=== PATIENT | male | born 1955 | race Caucasian/White ===

== ENCOUNTER → 2017-09-18 | Outpatient (CLI) | payer MEDICARE, MEDICAID ==
[2017-09-18 09:30] LABS: ABSOLUTE BASOPHILS # (AUTO) 0.1 10^3/uL (0.0-0.2); ABSOLUTE EOSINOPHILS # (AUTO) 0.2 10^3/uL (0.0-0.6); ABSOLUTE LYMPHOCYTES (AUTO) 1.1 10^3/uL (0.5-4.7); ABSOLUTE MONOCYTES (AUTO) 0.4 10^3/uL (0.1-1.4); ABSOLUTE NEUT (AUTO) 3.2 10^3/uL (1.7-8.2); BASOPHILS % (AUTO) 2.3 % (0-2); EOSINOPHILS % (AUTO) 3.7 % (0-6); HEMATOCRIT 42.8 % (37.9-51.0); HEMOGLOBIN 14.4 g/dL (13.5-17.0); HGB HCT DIFFERENCE 0.4; LYMPHOCYTES % (AUTO) 21.8 % (13-45); MEAN CORPUSCULAR HEMOGLOBIN 34.4 pg (27.0-33.4); MEAN CORPUSCULAR HGB CONC 33.7 g/dL (32.0-36.0); MEAN CORPUSCULAR VOLUME 102 fl (80-97); MONOCYTES % (AUTO) 7.5 % (3-13); RED BLOOD COUNT 4.19 10^6/uL (4.35-5.55); RED CELL DISTRIBUTION WIDTH 13.9 % (11.5-14.0); SEGMENTED NEUTROPHILS % (AUTO) 64.7 % (42-78); WHITE BLOOD COUNT 4.9 10^3/uL (4.0-10.5)
[2017-09-18 09:52] LABS: ALANINE AMINOTRANSFERASE 117 U/L (21-72); ALBUMIN 4.5 g/dL (3.5-5.0); ALKALINE PHOSPHATASE 52 U/L (38-126); ANION GAP 12 (5-19); ASPARTATE AMINO TRANSFERASE 59 U/L (17-59); BILIRUBIN,DIRECT 0.4 mg/dL (0.0-0.4); BILIRUBIN,TOTAL 0.6 mg/dL (0.2-1.3); BLOOD UREA NITROGEN 13 mg/dL (7-20); CALCIUM 9.7 mg/dL (8.4-10.2); CARBON DIOXIDE 30 mmol/L (22-30); CHLORIDE 101 mmol/L (98-107); CHOLESTEROL 239.94 mg/dL (0-200); CREATININE RESULT 1.15 mg/dL (0.52-1.25); Direct HDL 44 mg/dL (>40); GLUCOSE 96 mg/dL (75-110); SODIUM 143.4 mmol/L (137-145); TRIGLYCERIDES 256 mg/dL (<150)
[2017-09-18 10:03] LABS: DIRECT LDL 128 mg/dL (<100)
[2017-09-18 10:06] LABS: VLDL CHOLESTEROL 51.2 mg/dL (10-31)
== END ==
LOC: OD 08:33
PROVIDERS: ATTEND Family Medicine Geriatric Medicine
DX: D47.3 Essential (hemorrhagic) thrombocythemia (principal); E66.9 Obesity, unspecified; M79.9 Soft tissue disorder, unspecified; Z79.899 Other long term (current) drug therapy
CPT/HCPCS: 36415; 80053; 80061; 84443; 85025

== ENCOUNTER → 2017-12-19 | Outpatient (CLI) | payer MEDICARE, MEDICAID ==
[2017-12-19 08:50] LABS: ALANINE AMINOTRANSFERASE 108 U/L (21-72); ASPARTATE AMINO TRANSFERASE 55 U/L (17-59)
== END ==
LOC: OD 07:26
PROVIDERS: ATTEND Family Medicine Geriatric Medicine
DX: R94.8 Abnormal results of function studies of other organs and systems (principal)
CPT/HCPCS: 36415; 84450; 84460

== ENCOUNTER → 2018-01-01 | Outpatient (CLI) | payer MEDICARE, MEDICAID ==
--- NOTE | 2018-01-01 08:16 | RADIOLOGY REPORT (SQ) ---
EXAM DESCRIPTION: U/S ABDOMEN LIMITED W/O DOP COMPLETED DATE/TIME: 01/01/2018 7:28 am REASON FOR STUDY: OTHER SPECIFIED ABN FINDINGS OF BLOOD CHEM (R79.89), OBESITY (E66.9) R79.89 OTHER SPECIFIED ABNORMAL FINDINGS OF BLOOD CHEMISTRY COMPARISON: None. TECHNIQUE: Dynamic and static grayscale images acquired of the abdomen and recorded on PACS. Additio nal selected color Doppler and spectral images recorded. LIMITATIONS: Midline bowel gas FINDINGS: PANCREAS: Not visualized LIVER: Echogenic liver, difficult to penetrate with the ultrasound energy from fatty infiltration. N o gross masses. LIVER VASCULATURE: Normal directional flow of the main portal vein and hepatic veins. GALLBLADDER: No stones. Normal wall thickness. No pericholecystic fluid. ULTRASOUND-DETECTED IRBY'S SIGN: Negative. INTRAHEPATIC DUCTS AND COMMON DUCT: No gross intrahepatic biliary ductal dilatation. Common duct at the al hepatis difficult to visualize INFERIOR VENA CAVA: Not well seen AORTA: No aneurysm. RIGHT KIDNEY: Normal size. Normal echogenicity. No solid or suspicious masses. No hydronephrosis. No calcifications. PERITONEAL AND RIGHT PLEURAL SPACE: No ascites or effusions. OTHER: No other significant findings. IMPRESSION: Fatty liver No gallstones TECHNICAL DOCUMENTATION: JOB ID: [id number] [employer]- All Rights Reserved Reading location - IP/workstation name: [email or web address]
== END ==
LOC: RAD 06:25
PROVIDERS: ATTEND Family Medicine Geriatric Medicine
DX: R79.89 Other specified abnormal findings of blood chemistry (principal); E66.9 Obesity, unspecified; K76.0 Fatty (change of) liver, not elsewhere classified
CPT/HCPCS: 76705

== ENCOUNTER → 2018-03-20 | Outpatient (CLI) | payer MEDICARE, MEDICAID ==
[2018-03-20 08:41] LABS: LIPASE 106.9 U/L (23-300)
[2018-03-23 15:37] LABS: HEPATITIS B CORE AB IGM Negative (Negative); HEPATITIS B CORE AB TOT Negative (Negative); HEPATITIS BE AB Negative (Negative); HEPATITIS BE ANTIGEN Negative (Negative); HEPATITIS C VIRUS AB <0.1 s/co ratio (0.0-0.9); HEPATITS B SURFACE ANTIGEN Negative (Negative)
[2018-03-24 07:14] LABS: HEPATITIS B SURFACE AB QUAL Non Reactive (.)
== END ==
LOC: OD 07:06
PROVIDERS: ATTEND Family Medicine Geriatric Medicine
DX: D47.3 Essential (hemorrhagic) thrombocythemia (principal); R79.89 Other specified abnormal findings of blood chemistry; E78.5 Hyperlipidemia, unspecified; E66.9 Obesity, unspecified; Z79.899 Other long term (current) drug therapy
CPT/HCPCS: 36415; 82150; 82977; 83690; 84450; 84460; 86704; 86705; 86706; 86707; 86803; 87340; 87350

== ENCOUNTER → 2018-06-04 | Outpatient (CLI) | payer MEDICARE, MEDICAID ==
[2018-06-04 08:31] LABS: ABSOLUTE LYMPHOCYTES (AUTO) 0.9 10^3/uL (0.5-4.7); ABSOLUTE MONOCYTES (AUTO) 0.3 10^3/uL (0.1-1.4); ABSOLUTE NEUT (AUTO) 1.1 10^3/uL (1.7-8.2); BASOPHILS % (AUTO) 0.8 % (0-2); EOSINOPHILS % (AUTO) 0.8 % (0-6); HEMOGLOBIN 14.1 g/dL (13.5-17.0); LYMPHOCYTES % (AUTO) 38.9 % (13-45); MEAN CORPUSCULAR HEMOGLOBIN 42.6 pg (27.0-33.4); MEAN CORPUSCULAR VOLUME 118 fl (80-97); PLATELET COUNT 630 10^3/uL (150-450); RED CELL DISTRIBUTION WIDTH 17.9 % (11.5-14.0); SEGMENTED NEUTROPHILS % (AUTO) 47.5 % (42-78); TOTAL CELLS COUNTED % (AUTO) 100 %; WHITE BLOOD COUNT 2.4 10^3/uL (4.0-10.5)
[2018-06-04 08:56] LABS: TEAR DROP CELLS SLIGHT
[2018-06-04 08:57] LABS: OVALOCYTES 1+; PLATELET COMMENT INCREASED; POIKILOCYTOSIS 1+; STOMATOCYTES 1+
[2018-06-04 09:12] LABS: ALANINE AMINOTRANSFERASE 50 U/L (21-72); ALBUMIN 4.3 g/dL (3.5-5.0); ALKALINE PHOSPHATASE 47 U/L (38-126); ANION GAP 12 (5-19); ASPARTATE AMINO TRANSFERASE 39 U/L (17-59); BILIRUBIN,DIRECT 0.3 mg/dL (0.0-0.4); BILIRUBIN,TOTAL 0.8 mg/dL (0.2-1.3); BLOOD UREA NITROGEN 18 mg/dL (7-20); CALCIUM 9.1 mg/dL (8.4-10.2); CARBON DIOXIDE 28 mmol/L (22-30); CHLORIDE 103 mmol/L (98-107); GLUCOSE 90 mg/dL (75-110); IRON(TIBC) 157.2 ug/dL (49-181); POTASSIUM 4.7 mmol/L (3.6-5.0); SODIUM 143.3 mmol/L (137-145); TOTAL PROTEIN 7.3 g/dL (6.3-8.2)
[2018-06-07 11:27] LABS: MITOCHONDRIAL (M2) ANTIBODY 4.5 Units (0.0-20.0)
== END ==
LOC: OD 07:07
PROVIDERS: ATTEND Physician Assistant Surgical
DX: R94.5 Abnormal results of liver function studies (principal); K73.9 Chronic hepatitis, unspecified; K76.0 Fatty (change of) liver, not elsewhere classified; R93.2 Abnormal findings on diagnostic imaging of liver and biliary tract
CPT/HCPCS: 36415; 80053; 82728; 83540; 83550; 85025; 86038; 86235; 86256

== ENCOUNTER 2018-06-07 21:04 | Emergency (ER) | payer MEDICARE, MEDICAID ==
--- NOTE | 2018-06-07 22:30 | ER Document Report ---
ED General - General Chief Complaint: Psych Problem Stated Complaint: SUICIDAL IDEATION Time Seen by Provider: 06/07/18 22:19 Notes: Patient is a 62-year-old male with a past medical history of depression, anxiety , former alcohol and drug abuse although has been sober for the past 2 years who presents with passive suicidal ideation. The patient states that he began taking fluoxetine and Latuda approximately 2 months ago. States he had been doing very well for approximately 3 weeks but notes that within the past several weeks he has begun to again feel more depressed and for the past several days has had passive suicidal ideation. He denies any specific plans, means or intention by which he could harm himself. He does not have access to firearm. He states that he has had depression for over the past 25 years that has been treated with medication. He states he has never tried to harm himself in the past but has had intermittent passive suicidal ideation throughout his life. He denies psychiatric hospitalizations in the past. He denies any acute medical concerns. He has not discussed with his psychiatrist regarding today's concerns, states that he is frustrated that his psychiatry team is often on a computer as opposed to in person. TRAVEL OUTSIDE OF THE [place] IN LAST 30 DAYS: No - Related Data Allergies/Adverse Reactions: No Known Allergies Allergy (Verified 02/15/13 12:49) Past Medical History - General Information source: Patient - Social History Smoking Status: Former Smoker Frequency of alcohol use: None Drug Abuse: None Lives with: Alone Family History: Other - alzheimers Patient has suicidal ideation: Yes Patient has homicidal ideation: No - Past Medical History Cardiac Medical History: Denies: Hx Heart Attack, Hx Hypertension Pulmonary Medical History: Denies: Hx Asthma Neurological Medical History: Denies: Hx Cerebrovascular Accident, Hx Seizures Renal/ Medical History: Denies: Hx Peritoneal Dialysis GI Medical History: Denies: Hx Hepatitis, Hx Hiatal Hernia, Hx Ulcer Psychiatric Medical History: Reports: Hx Bipolar Disorder, Hx Depression Infectious Medical History: Denies: Hx Hepatitis Past Surgical History: Reports: Hx Orthopedic Surgery - left knee. Denies: Hx Open Heart Surgery, Hx Pacemaker - Immunizations Hx Diphtheria, Pertussis, Tetanus Vaccination: - unknown Review of Systems - Review of Systems Notes: Constitutional: Negative for fever. HENT: Negative for sore throat. Eyes: Negative for visual changes. Cardiovascular: Negative for chest pain. Respiratory: Negative for shortness of breath. Gastrointestinal: Negative for abdominal pain, vomiting or diarrhea. Genitourinary: Negative for dysuria. Musculoskeletal: Negative for back pain. Skin: Negative for rash. Neurological: Negative for headaches, weakness or numbness. 10 point ROS negative except as marked above and in HPI. Physical Exam - Vital signs Vitals: Temp Pulse Resp BP Pulse Ox 98.0 F 91 18 122/78 97 06/07/18 21:11 06/07/18 21:11 06/07/18 21:11 06/07/18 21:11 06/07/18 21:11 Interpretation: Normal Notes: PHYSICAL EXAMINATION: GENERAL: Well-appearing, well-nourished and in no acute distress. HEAD: Atraumatic, normocephalic. EYES: Pupils equal round and reactive to light, extraocular movements intact, sclera anicteric, conjunctiva are normal. ENT: nares patent, oropharynx clear without exudates. Moist mucous membranes. NECK: Normal range of motion, supple without lymphadenopathy LUNGS: Breath sounds clear to auscultation bilaterally and equal. No wheezes rales or rhonchi. HEART: Regular rate and rhythm without murmurs ABDOMEN: Soft, nontender, normoactive bowel sounds. No guarding, no rebound. No masses appreciated. EXTREMITIES: Normal range of motion, no pitting or edema. No cyanosis. NEUROLOGICAL: No focal neurological deficits. Moves all extremities spontaneously and on command. PSYCH: Normal mood, normal affect. SKIN: Warm, Dry, normal turgor, no rashes or lesions noted. Course - Re-evaluation Re-evalutation: 06/07/18 22:29 Patient presents with passive suicidal ideation without any specific plans, means or intention to harm himself. He states clearly that he could not actually hurt himself. He does have report that his passive suicidal ideation has been pervasive and persistent for at least the past 3 days when he had been doing well for the past 3 weeks on Latuda and fluoxetine. He does not meet involuntary commitment criteria but has elected to remain in the emergency department to speak psychology in the morning. Standard psychiatric screening labs will be sent. Screening exam unremarkable. He is cleared for evaluation and disposition per psychology. - Vital Signs Vital signs: Temp Pulse Resp BP Pulse Ox 98.0 F 91 18 122/78 97 06/07/18 21:11 06/07/18 21:11 06/07/18 21:11 06/07/18 21:11 06/07/18 21:11 - Laboratory Result Diagrams: 06/07/18 22:35 06/07/18 22:35 Laboratory results interpreted by me: 06/07/18 06/07/18 06/07/18 22:35 22:35 22:37 WBC 3.7 L RBC 3.36 L MCV 120 H MCH 42.8 H RDW 18.2 H Plt Count 708 H Urine Urobilinogen 2.0 H Urine Ascorbic Acid 40 H Salicylates < 1.0 L Acetaminophen < 10 L - EKG Interpretation by Me Additional EKG results interpreted by me: 06/08/18 03:13 Sinus rhythm. Rate 74. No ST elevations or depressions. QTC is 418. Discharge - Discharge Clinical Impression: Suicidal ideation Depression Qualifiers: Depression Type: unspecified Qualified Code(s): F32.9 - Major depressive disorder, single episode, unspecified Condition: Fair Referrals: DEIDRA OCONNOR PA-C [COMMUNITY BASED STAFF] - Follow up as needed
[2018-06-07 22:57] LABS: ABSOLUTE LYMPHOCYTES (AUTO) 1.3 10^3/uL (0.5-4.7); ABSOLUTE MONOCYTES (AUTO) 0.3 10^3/uL (0.1-1.4); ABSOLUTE NEUT (AUTO) 2.1 10^3/uL (1.7-8.2); BASOPHILS % (AUTO) 0.5 % (0-2); EOSINOPHILS % (AUTO) 0.9 % (0-6); HEMATOCRIT 40.2 % (37.9-51.0); HEMOGLOBIN 14.4 g/dL (13.5-17.0); LYMPHOCYTES % (AUTO) 35.2 % (13-45); MEAN CORPUSCULAR HEMOGLOBIN 42.8 pg (27.0-33.4); MEAN CORPUSCULAR HGB CONC 35.8 g/dL (32.0-36.0); MEAN CORPUSCULAR VOLUME 120 fl (80-97); PLATELET COUNT 708 10^3/uL (150-450); RED BLOOD COUNT 3.36 10^6/uL (4.35-5.55); RED CELL DISTRIBUTION WIDTH 18.2 % (11.5-14.0); SEGMENTED NEUTROPHILS % (AUTO) 55.4 % (42-78); TOTAL CELLS COUNTED % (AUTO) 100 %; WHITE BLOOD COUNT 3.7 10^3/uL (4.0-10.5)
[2018-06-07 23:12] LABS: ALANINE AMINOTRANSFERASE 61 U/L (21-72); ALBUMIN 4.6 g/dL (3.5-5.0); ALKALINE PHOSPHATASE 58 U/L (38-126); ANION GAP 12 (5-19); ASPARTATE AMINO TRANSFERASE 47 U/L (17-59); BILIRUBIN,DIRECT 0.3 mg/dL (0.0-0.4); BILIRUBIN,TOTAL 0.7 mg/dL (0.2-1.3); BLOOD UREA NITROGEN 16 mg/dL (7-20); CALCIUM 9.6 mg/dL (8.4-10.2); CARBON DIOXIDE 30 mmol/L (22-30); CHLORIDE 102 mmol/L (98-107); GLUCOSE 95 mg/dL (75-110); POTASSIUM 4.7 mmol/L (3.6-5.0); SODIUM 144.2 mmol/L (137-145); TOTAL PROTEIN 7.7 g/dL (6.3-8.2)
[2018-06-07 23:15] LABS: ACETAMINOPHEN < 10 ug/mL (10-30); ALCOHOL < 10 mg/dL (NONE DETECTED); SALICYLATE < 1.0 mg/dL (2.0-20.0)
[2018-06-07 23:27] LABS: ANISOCYTOSIS 1+; OVALOCYTES SLIGHT; POIKILOCYTOSIS SLIGHT; TEAR DROP CELLS SLIGHT
[2018-06-07 23:28] LABS: PLATELET COMMENT INCREASED
[2018-06-07 23:50] LABS: APPEARANCE,URINE TURBID; BILIRUBIN,URINE NEGATIVE (NEGATIVE); COLOR,URINE YELLOW; GLUCOSE, URINE NEGATIVE (NEGATIVE); KETONES,URINE NEGATIVE (NEGATIVE); LEUKOCYTE ESTERASE,URINE NEGATIVE (NEGATIVE); NITRITE,URINE NEGATIVE (NEGATIVE); PROTEIN,URINE NEGATIVE (NEGATIVE); URINE SPECIFIC GRAVITY 1.029
[2018-06-08 00:01] LABS: URINE AMPHETAMINES SCREEN NEGATIVE; URINE BARBITURATES SCREEN NEGATIVE; URINE BENZODIAZEPINES SCREEN NEGATIVE; URINE COCAINE SCREEN NEGATIVE; URINE MARIJUANA (THC) SCREEN NEGATIVE; URINE METHADONE SCREEN NEGATIVE; URINE PHENCYCLIDINE SCREEN NEGATIVE
--- NOTE | 2018-06-08 08:04 | EKG REPORT ---
SEVERITY:- BORDERLINE ECG - SINUS RHYTHM PROBABLE LEFT ATRIAL ABNORMALITY : Confirmed by: Vahid Arango MD 08-Jun-2018 08:03:20
--- NOTE | 2018-06-08 09:17 | ER Document Report ---
Doctor's Note Notes: 06/08/18 09:17 62-year-old male who presents with passive suicidal ideations without obvious plan. No firearms at home. History of depression and anxiety. Started on fluoxetine and Latuda 2 months ago. Has had this passive suicidal ideation with some mild depression over the past 3 weeks. Vital signs are stable. Labs as recorded. Awaiting psychiatric evaluation. 06/08/18 10:10 The psychology team is seen and evaluated the patient. They have contacted the patient's friend who is a social media community manager Mr. Reddy. He is able to help the patient with follow-up. Patient already sees [facility] with a recent medication change around 2 months ago as detailed above. The psychology team here would like to discontinue the fluoxetine and Latuda and start the patient on Effexor and BuSpar with a 5 day course until follow-up with his psychologist. Patient denies any suicidal ideations at this time. He is very comfortable with this plan.
--- NOTE | 2018-06-08 09:58 | PSYCHOLOGICAL NOTE ---
Psych Note - Psych Note Psych Note: Reason for consult: Suicidal ideation Consent permissions: Field Reddy [phone] Patient is a 62-year-old male with a past medical history of depression, anxiety , former alcohol and drug abuse although has been sober for the past 2 years who presents with passive suicidal ideation. Patient reports that he came to [facility] because he is been having suicidal thoughts for the last couple days. He reports that he does not have a plan and confirms that these thoughts have been going on and off for a while. He discloses that he has had depression since he was 19 years old however it was until he was 27 where he started on medications and going to AA meetings. Patient reports that he used to be a [facility] patient where he received an Invega; however, change providers in April to [facility] where he recieved medication changes to Latuda and Prozac. He reports an increase in depression and thoughts of SI since that change of medications. Patient reports that he has been clean and sober for 11 months and denies any difficulties or increased cravings recently. Clinician attempted phone call to patient's friend, Field Reddy: left message Field Reddy returned phone call he reports patient has been coming to meetings regularly and has been doing well. He confirms to be part of patient' s discharge plan i.e. ensures patient does not have access to medications weapons and follows through with mental health recommendations. He reports that he will assist the patient in finding a therapist locally so he can have one-on-one therapeutic services. Patient is alert and orientated to person, place, time and circumstance. Mood is euthymic with congruent affect. Patient endorses passive suicidal ideation i.e. no plans means or intent. Patient denies homicidal ideation. Delusions are absent behaviors congruent with an intact reality based presentation i.e. organized and linear thought process. Eye contact was well-maintained. Conversational speech was within normal rate, tone and prosody. Intellectual abilities appear to be within the average range. Attention and concentration were good. Insight, judgment, impulse control are good as evidenced by immediately reaching out and asking for assistance when feeling increased depression and passive suicidal ideation. Medication recommendations per [facility]'s contracted psychiatrist Dr. Thong MD are as follows: please stop home meds of latuda and prozac please start effexor 37.5mg daily please start buspar 5mg twice daily Diagnosis 296.30 (F33.9) major depressive disorder, recurrent, unspecified per history provided by patient Patient discloses a history of substance abuse; clean and sober for last 11 months Impression/plan:Patient is cleared from acute psychiatric services. Patient does not meet IVC criteria per [place] GS 122C. Patient discloses passive suicidal ideation; ie no plan, means or intent.Patient reports medication changes 2 months ago with an increase in depression with passive suicidal ideation starting several days previous. Medication recommendations have been provided. Patient has a medication appointment tomorrow with a therapeutic appointment on the sixth with [facility]. Patient does disclose concern for receiving services via telehealth stating he does not like talking to someone on a computer. Patient was provided resource list of local providers. Patient's support Mr. Reddy confirms he he will be part of patient's discharge plan to include assisting the patient in finding a provider that can provide in person therapeutic services. Dr. Garcia was consulted and the care and management of this patient; attending physician is in agreement with recommendations and disposition.
[2018-06-08] MEDS ORDERED: VENLAFAXINE HCL 37.5 MG CAP.SR.24H PO ONE (10:13)
[2018-06-08] MEDS ORDERED: BUSPIRONE HCL 10 MG TABLET PO ONE (10:13)
[2018-06-08 12:20] VITALS: BP 111/80
== END 2018-06-08 12:20 | disposition home or self-care (01) ==
LOC: ER 21:04
DX: F31.9 Bipolar disorder, unspecified (principal); Z79.899 Other long term (current) drug therapy; R45.851 Suicidal ideations; F41.9 Anxiety disorder, unspecified; Z87.891 Personal history of nicotine dependence
CPT/HCPCS: 93005; 99285; 36415; 80307 ×4; 85025; 80053; 81001; 93010; A9270 ×2; J3490

== ENCOUNTER → 2018-06-18 | Outpatient (CLI) | payer MEDICARE, MEDICAID | LOC: OD 09:40 | PROVIDERS: ATTEND Family Medicine Geriatric Medicine | DX: R79.89 Other specified abnormal findings of blood chemistry (principal); R94.5 Abnormal results of liver function studies | CPT/HCPCS: 36415; 84460 ==

== ENCOUNTER 2018-07-16 01:07 | Emergency (ER) | payer OTHER, MEDICARE, MEDICAID ==
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
[2018-07-16] MEDS ORDERED: LIDOCAINE 5% (700 MG) TRANSDERMAL ADH..PATCH TP ONE (01:48)
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
--- NOTE | 2018-07-16 02:24 | RADIOLOGY REPORT (SQ) ---
CLINICAL DATA: Left lateral rib pain. TECHNICAL DATA: Three x-ray views of the left ribs were performed. FINDINGS: There appear to be old healing fractures of the left 9th, 10th and 11th ribs and possibly the left 12th rib. No definite acute rib fracture is identified. Bone mineralization is normal. There are no lytic or sclerotic bone lesions the visualized portions of the left hemithorax are unremarkable. There are degenerative changes of the left shoulder.. IMPRESSION: There appear to be old healing fractures of the left 9th,10th and 11th ribs and possibly the left 12th rib. No definite acute fractures are identified.
[2018-07-16 03:05] VITALS: BP 135/92
--- NOTE | 2018-07-16 08:58 | EKG REPORT ---
SEVERITY:- OTHERWISE NORMAL ECG - SINUS TACHYCARDIA : Confirmed by: Vania Mueller 16-Jul-2018 08:58:17
== END 2018-07-16 03:03 | disposition home or self-care (01) ==
LOC: ER 01:07
DX: S22.32XA Fracture of one rib, left side, initial encounter for closed fracture (principal); L03.116 Cellulitis of left lower limb; R07.9 Chest pain, unspecified; R07.81 Pleurodynia; V29.9XXA Motorcycle rider (driver) (passenger) injured in unspecified traffic accident, initial encounter
CPT/HCPCS: 71046; 93005; 93010; 99285

== ENCOUNTER 2018-07-18 15:10 | Emergency (ER) | payer OTHER, MEDICARE, MEDICAID ==
[2018-07-18 15:16] VITALS: BP 132/79
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
[2018-07-18 17:19] LABS: ABSOLUTE MONOCYTES (AUTO) 0.4 10^3/uL (0.1-1.4); ABSOLUTE NEUT (AUTO) 3.1 10^3/uL (1.7-8.2); BASOPHILS % (AUTO) 0.6 % (0-2); HEMOGLOBIN 10.8 g/dL (13.5-17.0); LYMPHOCYTES % (AUTO) 22.2 % (13-45); MEAN CORPUSCULAR HEMOGLOBIN 46.1 pg (27.0-33.4); MEAN CORPUSCULAR VOLUME 128 fl (80-97); MONOCYTES % (AUTO) 8.9 % (3-13); PLATELET COUNT 667 10^3/uL (150-450); RED BLOOD COUNT 2.34 10^6/uL (4.35-5.55); RED CELL DISTRIBUTION WIDTH 18.1 % (11.5-14.0); SEGMENTED NEUTROPHILS % (AUTO) 67.3 % (42-78); TOTAL CELLS COUNTED % (AUTO) 100 %; WHITE BLOOD COUNT 4.6 10^3/uL (4.0-10.5)
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
[2018-07-18 17:29] LABS: ALANINE AMINOTRANSFERASE 48 U/L (21-72); ALBUMIN 4.2 g/dL (3.5-5.0); ALKALINE PHOSPHATASE 61 U/L (38-126); ANION GAP 8 (5-19); ASPARTATE AMINO TRANSFERASE 49 U/L (17-59); BILIRUBIN,DIRECT 0.4 mg/dL (0.0-0.4); BLOOD UREA NITROGEN 12 mg/dL (7-20); CALCIUM 8.9 mg/dL (8.4-10.2); CARBON DIOXIDE 29 mmol/L (22-30); CHLORIDE 101 mmol/L (98-107); GLUCOSE 102 mg/dL (75-110); POTASSIUM 4.6 mmol/L (3.6-5.0); SODIUM 138.1 mmol/L (137-145)
[2018-07-18 17:33] LABS: ANISOCYTOSIS 2+; OVALOCYTES SLIGHT; POLYCHROMASIA SLIGHT
[2018-07-18 17:34] LABS: PLATELET COMMENT INCREASED; POIKILOCYTOSIS 1+; TEAR DROP CELLS SLIGHT
== END 2018-07-18 18:24 | disposition home or self-care (01) ==
LOC: ER 15:10
DX: L03.116 Cellulitis of left lower limb (principal); R60.0 Localized edema; M25.562 Pain in left knee; R07.81 Pleurodynia; M79.605 Pain in left leg; M79.89 Other specified soft tissue disorders; F17.200 Nicotine dependence, unspecified, uncomplicated; V23.4XXD Motorcycle driver injured in collision with car, pick-up truck or van in traffic accident, subsequent encounter
CPT/HCPCS: 36415; 80053; 83605; 85025; 99284

== ENCOUNTER 2018-07-21 09:52 | Emergency (ER) | payer OTHER, MEDICARE, MEDICAID ==
[2018-07-21 10:01] VITALS: BP 130/77
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
== END 2018-07-21 13:51 | disposition left against medical advice (07) ==
LOC: ER 09:52
DX: S27.321A Contusion of lung, unilateral, initial encounter (principal); S71.111A Laceration without foreign body, right thigh, initial encounter; S81.812A Laceration without foreign body, left lower leg, initial encounter; S20.02XA Contusion of left breast, initial encounter; S60.512A Abrasion of left hand, initial encounter; S60.511A Abrasion of right hand, initial encounter; S90.812A Abrasion, left foot, initial encounter; S90.811A Abrasion, right foot, initial encounter; R07.81 Pleurodynia; V29.40XA Motorcycle driver injured in collision with unspecified motor vehicles in traffic accident, initial encounter; R19.7 Diarrhea, unspecified; Z53.20 Procedure and treatment not carried out because of patient's decision for unspecified reasons
CPT/HCPCS: 71046; 99281

== ENCOUNTER → 2018-08-24 | Outpatient (CLI) | payer OTHER, MEDICARE, MEDICAID ==
--- NOTE | 2018-08-25 09:52 | RADIOLOGY REPORT (SQ) ---
EXAM DESCRIPTION: CHEST PA/LATERAL COMPLETED DATE/TIME: 08/25/2018 9:14 am REASON FOR STUDY: J18.9 PNEUMONIA, UNSPECIFIED ORGANISM COMPARISON: Two-view chest 07/21/2018 EXAM PARAMETERS: NUMBER OF VIEWS: two views TECHNIQUE: Digital Frontal and Lateral radiographic views of the chest acquired. RADIATION DOSE: NA LIMITATIONS: none FINDINGS: LUNGS AND PLEURA: No opacities, masses or pneumothorax. No pleural effusion. MEDIASTINUM AND HILAR STRUCTURES: No masses or contour abnormalities. HEART AND VASCULAR STRUCTURES: Heart normal size. No evidence for failure. BONES: No acute findings. HARDWARE: None in the chest. OTHER: No other significant finding. IMPRESSION: NO SIGNIFICANT RADIOGRAPHIC FINDING IN THE CHEST. TECHNICAL DOCUMENTATION: JOB ID: [id number] [employer]- All Rights Reserved Reading location - IP/workstation name: [email or web address]
== END ==
LOC: OD 11:52
PROVIDERS: ATTEND Family Medicine Geriatric Medicine
DX: J18.9 Pneumonia, unspecified organism (principal)
CPT/HCPCS: 71046

== ENCOUNTER 2018-09-09 16:57 | Emergency (ER) | payer MEDICARE, MEDICAID ==
--- NOTE | 2018-09-09 17:22 | ER Document Report ---
ED Medical Screen (RME) - General Chief Complaint: Suicidal Ideation Stated Complaint: PSYCH PROBLEM Time Seen by Provider: 09/09/18 17:20 Notes: 62 years old male with a history of depression presents today with suicidal ideation, no plan. TRAVEL OUTSIDE OF THE [place] IN LAST 30 DAYS: No - Related Data Allergies/Adverse Reactions: No Known Allergies Allergy (Verified 09/09/18 16:59) Past Medical History - Social History Chew tobacco use (# tins/day): No Frequency of alcohol use: None Drug Abuse: None - Past Medical History Cardiac Medical History: Denies: Hx Heart Attack, Hx Hypertension Pulmonary Medical History: Denies: Hx Asthma Neurological Medical History: Denies: Hx Cerebrovascular Accident, Hx Seizures Renal/ Medical History: Denies: Hx Peritoneal Dialysis GI Medical History: Denies: Hx Hepatitis, Hx Hiatal Hernia, Hx Ulcer Psychiatric Medical History: Reports: Hx Bipolar Disorder, Hx Depression Infectious Medical History: Denies: Hx Hepatitis Past Surgical History: Reports: Hx Orthopedic Surgery - left knee. Denies: Hx Open Heart Surgery, Hx Pacemaker - Immunizations Hx Diphtheria, Pertussis, Tetanus Vaccination: - unknown Physical Exam - Vital signs Vitals: Temp Pulse Resp BP Pulse Ox 97.5 F 86 14 135/82 H 95 09/09/18 17:08 09/09/18 17:08 09/09/18 17:08 09/09/18 17:08 09/09/18 17:08 Course - Vital Signs Vital signs: Temp Pulse Resp BP Pulse Ox 97.5 F 86 14 135/82 H 95 09/09/18 17:08 09/09/18 17:08 09/09/18 17:08 09/09/18 17:08 09/09/18 17:08 Doctor's Discharge - Discharge Referrals: ALVIN ARMAS MD [Primary Care Provider] - Follow up as needed
[2018-09-09 18:18] LABS: ABSOLUTE EOSINOPHILS # (AUTO) 0.1 10^3/uL (0.0-0.6); ABSOLUTE MONOCYTES (AUTO) 0.2 10^3/uL (0.1-1.4); ABSOLUTE NEUT (AUTO) 1.7 10^3/uL (1.7-8.2); BASOPHILS % (AUTO) 0.5 % (0-2); EOSINOPHILS % (AUTO) 2.4 % (0-6); HEMATOCRIT 38.5 % (37.9-51.0); HEMOGLOBIN 13.6 g/dL (13.5-17.0); LYMPHOCYTES % (AUTO) 32.3 % (13-45); MEAN CORPUSCULAR HEMOGLOBIN 45.6 pg (27.0-33.4); MEAN CORPUSCULAR HGB CONC 35.4 g/dL (32.0-36.0); MEAN CORPUSCULAR VOLUME 129 fl (80-97); MONOCYTES % (AUTO) 7.3 % (3-13); PLATELET COUNT 339 10^3/uL (150-450); RED BLOOD COUNT 2.98 10^6/uL (4.35-5.55); RED CELL DISTRIBUTION WIDTH 13.5 % (11.5-14.0); SEGMENTED NEUTROPHILS % (AUTO) 57.5 % (42-78); TOTAL CELLS COUNTED % (AUTO) 100 %
[2018-09-09 18:29] LABS: ALANINE AMINOTRANSFERASE 49 U/L (21-72); ALBUMIN 4.5 g/dL (3.5-5.0); ALKALINE PHOSPHATASE 63 U/L (38-126); ANION GAP 10 (5-19); ASPARTATE AMINO TRANSFERASE 40 U/L (17-59); BILIRUBIN,DIRECT 0.2 mg/dL (0.0-0.4); BILIRUBIN,TOTAL 0.6 mg/dL (0.2-1.3); BLOOD UREA NITROGEN 15 mg/dL (7-20); CALCIUM 9.1 mg/dL (8.4-10.2); CARBON DIOXIDE 29 mmol/L (22-30); CHLORIDE 104 mmol/L (98-107); GLUCOSE 99 mg/dL (75-110); POTASSIUM 4.4 mmol/L (3.6-5.0); SODIUM 142.6 mmol/L (137-145); TOTAL PROTEIN 7.2 g/dL (6.3-8.2)
[2018-09-09 18:30] LABS: ACETAMINOPHEN < 10 ug/mL (10-30); ALCOHOL < 10 mg/dL (NONE DETECTED); SALICYLATE < 1.0 mg/dL (2.0-20.0)
[2018-09-09 18:33] LABS: PLATELET COMMENT ADEQUATE; POIKILOCYTOSIS SLIGHT; TEAR DROP CELLS SLIGHT; TOXIC GRANULATION SLIGHT
[2018-09-09 18:40] LABS: APPEARANCE,URINE CLEAR; BILIRUBIN,URINE NEGATIVE (NEGATIVE); COLOR,URINE YELLOW; GLUCOSE, URINE NEGATIVE (NEGATIVE); KETONES,URINE NEGATIVE (NEGATIVE); LEUKOCYTE ESTERASE,URINE NEGATIVE (NEGATIVE); NITRITE,URINE NEGATIVE (NEGATIVE); PROTEIN,URINE NEGATIVE (NEGATIVE); URINE SPECIFIC GRAVITY 1.025; UROBILINOGEN,URINE NEGATIVE mg/dL (<2.0)
[2018-09-09 18:47] LABS: URINE AMPHETAMINES SCREEN NEGATIVE; URINE BARBITURATES SCREEN NEGATIVE; URINE BENZODIAZEPINES SCREEN NEGATIVE; URINE COCAINE SCREEN NEGATIVE; URINE MARIJUANA (THC) SCREEN NEGATIVE; URINE METHADONE SCREEN NEGATIVE; URINE PHENCYCLIDINE SCREEN NEGATIVE
--- NOTE | 2018-09-09 19:02 | EKG REPORT ---
SEVERITY:- NORMAL ECG - SINUS RHYTHM : Confirmed by: Vahid Arango MD 09-Sep-2018 19:01:25
--- NOTE | 2018-09-09 22:48 | ER Document Report ---
ED General - General Chief Complaint: Suicidal Ideation Stated Complaint: PSYCH PROBLEM Time Seen by Provider: 09/09/18 17:20 Mode of Arrival: Ambulatory Information source: Patient TRAVEL OUTSIDE OF THE [place] IN LAST 30 DAYS: No - HPI Patient complains to provider of: depression Onset: Other - This is a 62-year-old man that presents for evaluation of depression. He has been intermittently treated for depression in the past and is currently on Zyprexa to help with his depression which is only helped slightly. He has been seen by his counselor multiple times for an attempted medication adjustment without any improvement so he contacted 1 of the local mental health facilities who suggested he undergo a medical clearance that they would be willing to take him as he presented voluntarily to be admitted as an inpatient at an outside facility for medication adjustments. He denies at this time any suicidality he denies any homicidality. He denies any hallucinations or desire to harm anyone else. - Related Data Allergies/Adverse Reactions: No Known Allergies Allergy (Verified 09/09/18 16:59) Past Medical History - General Information source: Patient - Social History Smoking Status: Never Smoker Chew tobacco use (# tins/day): No Frequency of alcohol use: None Drug Abuse: None Family History: Reviewed & Not Pertinent, Other - alzheimers Patient has suicidal ideation: Yes Patient has homicidal ideation: No - Past Medical History Cardiac Medical History: Denies: Hx Heart Attack, Hx Hypertension Pulmonary Medical History: Denies: Hx Asthma Neurological Medical History: Denies: Hx Cerebrovascular Accident, Hx Seizures Renal/ Medical History: Denies: Hx Peritoneal Dialysis GI Medical History: Denies: Hx Hepatitis, Hx Hiatal Hernia, Hx Ulcer Psychiatric Medical History: Reports: Hx Bipolar Disorder, Hx Depression Infectious Medical History: Denies: Hx Hepatitis Past Surgical History: Reports: Hx Orthopedic Surgery - left knee. Denies: Hx Open Heart Surgery, Hx Pacemaker - Immunizations Hx Diphtheria, Pertussis, Tetanus Vaccination: - unknown Review of Systems - Review of Systems -: Yes All other systems reviewed and negative Physical Exam - Vital signs Vitals: Temp Pulse Resp BP Pulse Ox 97.5 F 86 14 135/82 H 95 09/09/18 17:08 09/09/18 17:08 09/09/18 17:08 09/09/18 17:08 09/09/18 17:08 - General General appearance: Appears well, Alert - HEENT Head: Normocephalic, Atraumatic Eyes: Normal Pupils: PERRL - Respiratory Respiratory status: No respiratory distress Chest status: Nontender Breath sounds: Normal Chest palpation: Normal - Cardiovascular Rhythm: Regular Heart sounds: Normal auscultation Murmur: No - Abdominal Inspection: Normal Distension: No distension Bowel sounds: Normal Tenderness: Nontender Organomegaly: No organomegaly - Back Back: Normal, Nontender - Extremities General upper extremity: Normal inspection, Nontender, Normal color, Normal ROM , Normal temperature General lower extremity: Normal inspection, Nontender, Normal color, Normal ROM , Normal temperature, Normal weight bearing. No: Margarita's sign - Neurological Neuro grossly intact: Yes Cognition: Normal Orientation: AAOx4 [place] Coma Scale Eye Opening: Spontaneous [place] Coma Scale Verbal: Oriented Amy Coma Scale Motor: Obeys Commands [place] Coma Scale Total: 15 Speech: Normal Motor strength normal: LUE, RUE, LLE, RLE Sensory: Normal - Psychological Associated symptoms: Normal affect, Normal mood Course - Re-evaluation Re-evalutation: 09/10/18 00:09 This is a gentleman is 62 presents for voluntary evaluation of depression. Had contacted an outside facility was seeking a medical clearance to undergo inpatient treatment and adjustment of his medications. Following his medical clearance we did discuss his potential waiting until morning to be seen by mental health team and will be transitioned to inpatient care however he decided that he did not want to wait any longer and he will pursue outpatient treatment for his ongoing depression. I did discuss with him my concerns related specifically to his mental health he again reiterated that he is not at this time suicidal or homicidal he has no plan to harm himself or anyone else. He notes that he is going to pursue outpatient management will continue to take his medications as previously. Because of his well appearance is appropriate insight and no obvious underlying cause for his depression it is immediately treatable in the emergency department I believe it is appropriate for him to pursue outpatient management as he had in the past. He has demonstrated appropriate follow-up previously. He will be discharged with return precautions and encouraged follow-up in his psychologist office tomorrow. - Vital Signs Vital signs: Temp Pulse Resp BP Pulse Ox 97.5 F 86 14 135/82 H 95 09/09/18 17:08 09/09/18 17:08 09/09/18 17:08 09/09/18 17:08 09/09/18 17:08 - Laboratory Result Diagrams: 09/09/18 17:50 09/09/18 17:50 Laboratory results interpreted by me: 09/09/18 09/09/18 17:50 17:50 WBC 3.0 L RBC 2.98 L MCV 129 H MCH 45.6 H Salicylates < 1.0 L Acetaminophen < 10 L Discharge - Discharge Clinical Impression: Depression Qualifiers: Depression Type: unspecified Qualified Code(s): F32.9 - Major depressive disorder, single episode, unspecified Condition: Good Disposition: HOME, SELF-CARE Instructions: Depression ([facility]) Additional Instructions: Your seen today in the emergency department for your depression. You had an evaluation including labs drawn. You presented voluntarily, he states specifically that you have no desire to harm anyone including herself at this time. You should call your physician tomorrow for an appointment. Return immediately for any worsening suicidal thoughts or depression. Referrals: ALVIN ARMAS MD [Primary Care Provider] - Follow up as needed
[2018-09-09 23:02] VITALS: BP 129/78
== END 2018-09-09 22:50 | disposition home or self-care (01) ==
LOC: ER 16:57
DX: F31.9 Bipolar disorder, unspecified (principal); Z79.899 Other long term (current) drug therapy; R45.851 Suicidal ideations; Z87.891 Personal history of nicotine dependence; F10.21 Alcohol dependence, in remission
CPT/HCPCS: 36415; 80053; 80307; 81001; 85025; 93005; 93010; 99285

== ENCOUNTER 2018-09-14 14:55 | Emergency (ER) | payer MEDICARE, MEDICAID ==
--- NOTE | 2018-09-14 15:41 | ER Document Report ---
ED Medical Screen (RME) - General Chief Complaint: Depression Stated Complaint: PSYCH PROBLEMS Time Seen by Provider: 09/14/18 15:35 Notes: 62-year-old male with chief complaint of feeling depressed and having suicidal thoughts. Will not elaborate for me, will not tell me if he has had a plan, denies attempting suicide in the past. Past medical history of schizoaffective disorder, depression, denies hallucinations, denies any sick symptoms. States he was placed on Zyprexa 1 month ago, helped initially, feels it is not helping now. TRAVEL OUTSIDE OF THE [place] IN LAST 30 DAYS: No - Related Data Allergies/Adverse Reactions: No Known Allergies Allergy (Verified 09/14/18 14:56) Past Medical History - Social History Chew tobacco use (# tins/day): No Frequency of alcohol use: None Drug Abuse: None - Past Medical History Cardiac Medical History: Denies: Hx Heart Attack, Hx Hypertension Pulmonary Medical History: Denies: Hx Asthma Neurological Medical History: Denies: Hx Cerebrovascular Accident, Hx Seizures Renal/ Medical History: Denies: Hx Peritoneal Dialysis GI Medical History: Denies: Hx Hepatitis, Hx Hiatal Hernia, Hx Ulcer Psychiatric Medical History: Reports: Hx Bipolar Disorder, Hx Depression Infectious Medical History: Denies: Hx Hepatitis Past Surgical History: Reports: Hx Orthopedic Surgery - left knee. Denies: Hx Open Heart Surgery, Hx Pacemaker - Immunizations Hx Diphtheria, Pertussis, Tetanus Vaccination: - unknown Physical Exam - Vital signs Vitals: Temp Pulse Resp BP Pulse Ox 98.0 F 89 12 125/76 94 09/14/18 15:22 09/14/18 15:22 09/14/18 15:22 09/14/18 15:22 09/14/18 15:22 - General General appearance: Appears well In distress: None - Psychological Associated symptoms: No: Normal affect - Flat affect; does make eye contact and engage in conversation to a limited amount Course - Vital Signs Vital signs: Temp Pulse Resp BP Pulse Ox 98.0 F 89 12 125/76 94 09/14/18 15:22 09/14/18 15:22 09/14/18 15:22 09/14/18 15:22 09/14/18 15:22 Doctor's Discharge - Discharge Referrals: ALVIN ARMAS MD [Primary Care Provider] - Follow up as needed
--- NOTE | 2018-09-14 16:33 | ER Document Report ---
ED Psych Disorder / Suicide - General Chief Complaint: Depression Stated Complaint: PSYCH PROBLEMS Time Seen by Provider: 09/14/18 15:35 Mode of Arrival: Ambulatory Information source: Patient TRAVEL OUTSIDE OF THE [place] IN LAST 30 DAYS: No - HPI Patient complains to provider of: Suicidal ideation Onset was: Cannot confirm Quality of pain: No pain Suicide Risk Factors: Depressed, Male Associated symptoms: Depressed, Flat affect Similar symptoms previously: Yes Recently seen / treated by doctor: Yes Notes: Patient is a 62-year-old male presenting to the emergency room today complaining of worsening depression with occasional thoughts of suicide but no active plan, he is currently sober times 1 year, follows up at [facility], and attends Alcoholics Anonymous meetings, he takes Prozac and Zyprexa which he denies noncompliance with presents to the emergency room today in hopes of inpatient hospitalization for his worsening depression - Related Data Allergies/Adverse Reactions: No Known Allergies Allergy (Verified 09/14/18 14:56) Past Medical History - General Information source: Patient - Social History Smoking Status: Former Smoker Chew tobacco use (# tins/day): No Frequency of alcohol use: None Drug Abuse: None Family History: Reviewed & Not Pertinent, Other - alzheimers Patient has suicidal ideation: No Patient has homicidal ideation: No - Past Medical History Cardiac Medical History: Denies: Hx Heart Attack, Hx Hypertension Pulmonary Medical History: Denies: Hx Asthma Neurological Medical History: Denies: Hx Cerebrovascular Accident, Hx Seizures Renal/ Medical History: Denies: Hx Peritoneal Dialysis GI Medical History: Denies: Hx Hepatitis, Hx Hiatal Hernia, Hx Ulcer Psychiatric Medical History: Reports: Hx Bipolar Disorder, Hx Depression Infectious Medical History: Denies: Hx Hepatitis Past Surgical History: Reports: Hx Orthopedic Surgery - left knee. Denies: Hx Open Heart Surgery, Hx Pacemaker - Immunizations Hx Diphtheria, Pertussis, Tetanus Vaccination: - unknown Review of Systems - Review of Systems Constitutional: No symptoms reported EENT: No symptoms reported Cardiovascular: No symptoms reported Respiratory: No symptoms reported Gastrointestinal: No symptoms reported Genitourinary: No symptoms reported Male Genitourinary: No symptoms reported Musculoskeletal: No symptoms reported Skin: No symptoms reported Hematologic/Lymphatic: No symptoms reported Neurological/Psychological: See HPI -: Yes All other systems reviewed and negative Physical Exam - Vital signs Vitals: Temp Pulse Resp BP Pulse Ox 98.0 F 89 12 125/76 94 09/14/18 15:22 09/14/18 15:22 09/14/18 15:22 09/14/18 15:22 09/14/18 15:22 Interpretation: Normal - General General appearance: Appears well, Alert - HEENT Head: Normocephalic, Atraumatic Eyes: Normal Pupils: PERRL - Respiratory Respiratory status: No respiratory distress Chest status: Nontender Breath sounds: Normal Chest palpation: Normal - Cardiovascular Rhythm: Regular Heart sounds: Normal auscultation Murmur: No - Abdominal Inspection: Normal Distension: No distension Bowel sounds: Normal Tenderness: Nontender Organomegaly: No organomegaly - Back Back: Normal, Nontender - Extremities General upper extremity: Normal inspection, Nontender, Normal color, Normal ROM , Normal temperature General lower extremity: Normal inspection, Nontender, Normal color, Normal ROM , Normal temperature, Normal weight bearing. No: Margarita's sign - Neurological Neuro grossly intact: Yes Cognition: Normal Orientation: AAOx4 Amy Coma Scale Eye Opening: Spontaneous [place] Coma Scale Verbal: Oriented [place] Coma Scale Motor: Obeys Commands [place] Coma Scale Total: 15 Speech: Normal Motor strength normal: LUE, RUE, LLE, RLE Sensory: Normal - Psychological Associated symptoms: Normal affect, Normal mood - Skin Skin Temperature: Warm Skin Moisture: Dry Skin Color: Normal Course - Re-evaluation Re-evalutation: 09/14/18 17:35 Patient presents with worsening depression and passive suicidal thoughts that are occasional, he has no active thoughts and therefore does not meet criteria for involuntary commitment, patient has been seen and evaluated by mental health team who recommend that he be discharged, they did verify that [facility] has an open bed at this point in time, therefore patient can be discharged and transport himself as a voluntary patient to [facility] for an intake and possible inpatient hospitalization, patient acknowledges understanding and agreement with this plan, patient medically cleared for discharge - Vital Signs Vital signs: Temp Pulse Resp BP Pulse Ox 98.0 F 89 12 125/76 94 09/14/18 15:22 09/14/18 15:22 09/14/18 15:22 09/14/18 15:22 09/14/18 15:22 - Laboratory Result Diagrams: 09/14/18 16:30 09/14/18 16:30 Laboratory results interpreted by me: 09/14/18 09/14/18 09/14/18 16:30 16:30 16:30 WBC 2.9 L RBC 2.89 L Hgb 13.2 L Hct 37.5 L MCV 130 H MCH 45.7 H Urine Protein 30 H Urine Bilirubin SMALL H Urine Urobilinogen 4.0 H Salicylates < 1.0 L Acetaminophen < 10 L - EKG Interpretation by Me EKG shows normal: Sinus rhythm Rate: Normal Rhythm: NSR Discharge - Discharge Clinical Impression: Suicidal ideation Depression Qualifiers: Depression Type: unspecified Qualified Code(s): F32.9 - Major depressive disorder, single episode, unspecified Condition: Stable Disposition: HOME, SELF-CARE Instructions: Depression ([facility]), Suicidal Ideation ([facility]) Additional Instructions: Report immediately to [facility] for intake and possible inpatient hospitalization. Return to the emergency room immediately if symptoms worsen or any additional concerns. Referrals: ALVIN ARMAS MD [Primary Care Provider] - Follow up as needed
[2018-09-14 16:46] LABS: ABSOLUTE EOSINOPHILS # (AUTO) 0.1 10^3/uL (0.0-0.6); ABSOLUTE LYMPHOCYTES (AUTO) 0.9 10^3/uL (0.5-4.7); ABSOLUTE MONOCYTES (AUTO) 0.3 10^3/uL (0.1-1.4); ABSOLUTE NEUT (AUTO) 1.7 10^3/uL (1.7-8.2); BASOPHILS % (AUTO) 0.7 % (0-2); EOSINOPHILS % (AUTO) 2.3 % (0-6); HEMATOCRIT 37.5 % (37.9-51.0); HEMOGLOBIN 13.2 g/dL (13.5-17.0); LYMPHOCYTES % (AUTO) 28.9 % (13-45); MEAN CORPUSCULAR HEMOGLOBIN 45.7 pg (27.0-33.4); MEAN CORPUSCULAR HGB CONC 35.3 g/dL (32.0-36.0); MEAN CORPUSCULAR VOLUME 130 fl (80-97); MONOCYTES % (AUTO) 10.5 % (3-13); PLATELET COUNT 399 10^3/uL (150-450); RED BLOOD COUNT 2.89 10^6/uL (4.35-5.55); RED CELL DISTRIBUTION WIDTH 13.9 % (11.5-14.0); SEGMENTED NEUTROPHILS % (AUTO) 57.6 % (42-78); TOTAL CELLS COUNTED % (AUTO) 100 %; WHITE BLOOD COUNT 2.9 10^3/uL (4.0-10.5)
--- NOTE | 2018-09-14 16:54 | PSYCHOLOGICAL NOTE ---
Psych Note - Psych Note Date seen by psych provider: 09/14/18 Time seen by psych provider: 16:30 Psych Note: Reason for Consult: Suicidal ideation 62-year-old male with chief complaint of feeling depressed and having suicidal thoughts. Patient disclosed that he rode his scooter to [facility] because he has been having suicidal ideation and depression. He reports is been occurring for about 1 month however denies having a plan. He states that he is unknown what his trigger is however does know that his outpatient mental provider has been trying to help him with his medications. He states that originally the medications made him feel good however now they are not working. He reports that he does have a support network through the and he has been sober 1 year this last July 20. He reports that he takes Prozac and Zyprexa however is unable to remember the amounts. Patient reports he would like to go to voluntarily to [facility] for his medication adjustments he just needs medical clearance. Patient is alert and orientated to person, place, time and circumstance. Mood is euthymic with congruent affect. Patient reports passive suicidal ideation i.e. no plans means or intent. Denies homicidal ideation. Delusions are absent behaviors congruent with an intact reality based presentation i.e. organized linear thought process. Eye contact was well-maintained. Conversational speech is within normal rate, tone and prosody. Intellectual abilities appear to be within the average range. Attention and concentration are good. Insight, judgment, impulse control is fair. Behavior health team contacted [facility] and they confirm they do have beds available. They report the patient can come in for an evaluation. No medication recommendations at this time Diagnosis 311 (F32.9) unspecified depressive disorder History of alcoholism; sober 1 year Impression/Plan: Patient is cleared from acute psychiatric services. Patient reports that he would like to go voluntarily to [facility] and needs medical clearance. Patient does not meet IVC criteria per [place] GS 122C. Patient reports passive suicidal ideation i.e. no plans means or intent that has been ongoing for about 1 month. Patient does not want medication adjustments at [facility] he would rather go to [facility] for those adjustments. Behavior health team contacted [facility] and they confirm they do have beds available. Patient is recommended to follow through with the plan of going to [facility] to seek voluntary placement. Dr. Garcia was consulted and care management of this patient; attending physicians in agreement with recommendations and disposition
[2018-09-14 16:55] LABS: APPEARANCE,URINE SLIGHTLY-CLOUDY; BILIRUBIN,URINE SMALL (NEGATIVE); COLOR,URINE AMBER; GLUCOSE, URINE NEGATIVE (NEGATIVE); KETONES,URINE NEGATIVE (NEGATIVE); LEUKOCYTE ESTERASE,URINE NEGATIVE (NEGATIVE); NITRITE,URINE NEGATIVE (NEGATIVE); PROTEIN,URINE 30 mg/dL (NEGATIVE); URINE SPECIFIC GRAVITY 1.032
[2018-09-14 17:01] LABS: ALANINE AMINOTRANSFERASE 37 U/L (21-72); ALBUMIN 4.4 g/dL (3.5-5.0); ALKALINE PHOSPHATASE 65 U/L (38-126); ANION GAP 11 (5-19); ASPARTATE AMINO TRANSFERASE 31 U/L (17-59); BILIRUBIN,DIRECT 0.2 mg/dL (0.0-0.4); BILIRUBIN,TOTAL 0.8 mg/dL (0.2-1.3); BLOOD UREA NITROGEN 14 mg/dL (7-20); CARBON DIOXIDE 29 mmol/L (22-30); CHLORIDE 103 mmol/L (98-107); GLUCOSE 96 mg/dL (75-110); POTASSIUM 4.4 mmol/L (3.6-5.0); SODIUM 142.8 mmol/L (137-145); TOTAL PROTEIN 7.1 g/dL (6.3-8.2)
[2018-09-14 17:03] LABS: ACETAMINOPHEN < 10 ug/mL (10-30); ALCOHOL < 10 mg/dL (NONE DETECTED); SALICYLATE < 1.0 mg/dL (2.0-20.0)
[2018-09-14 17:08] LABS: URINE AMPHETAMINES SCREEN NEGATIVE; URINE BARBITURATES SCREEN NEGATIVE; URINE BENZODIAZEPINES SCREEN NEGATIVE; URINE MARIJUANA (THC) SCREEN NEGATIVE; URINE METHADONE SCREEN NEGATIVE; URINE PHENCYCLIDINE SCREEN NEGATIVE
[2018-09-14 17:09] LABS: URINE COCAINE SCREEN NEGATIVE
[2018-09-14 17:10] LABS: PLATELET COMMENT ADEQUATE
[2018-09-14 17:11] LABS: OVALOCYTES 1+; POIKILOCYTOSIS 1+
[2018-09-14 18:06] VITALS: BP 120/72
--- NOTE | 2018-09-14 18:36 | EKG REPORT ---
SEVERITY:- NORMAL ECG - SINUS RHYTHM : Confirmed by: Vania Mueller 14-Sep-2018 18:36:28
== END 2018-09-14 18:06 | disposition home or self-care (01) ==
LOC: ER 14:55
DX: F32.9 Major depressive disorder, single episode, unspecified (principal); Z87.891 Personal history of nicotine dependence; R45.851 Suicidal ideations
CPT/HCPCS: 36415; 80053; 80307; 81001; 85025; 93005; 93010; 99285

== ENCOUNTER → 2018-09-24 | Outpatient (CLI) | payer MEDICARE, MEDICAID ==
[2018-09-25 08:26] LABS: ABSOLUTE LYMPHOCYTES (AUTO) 0.9 10^3/uL (0.5-4.7); ABSOLUTE MONOCYTES (AUTO) 0.2 10^3/uL (0.1-1.4); ABSOLUTE NEUT (AUTO) 1.2 10^3/uL (1.7-8.2); EOSINOPHILS % (AUTO) 1.6 % (0-6); HEMATOCRIT 38.8 % (37.9-51.0); HEMOGLOBIN 13.8 g/dL (13.5-17.0); LYMPHOCYTES % (AUTO) 37.2 % (13-45); MEAN CORPUSCULAR HEMOGLOBIN 45.7 pg (27.0-33.4); MEAN CORPUSCULAR HGB CONC 35.6 g/dL (32.0-36.0); MEAN CORPUSCULAR VOLUME 128 fl (80-97); MONOCYTES % (AUTO) 9.3 % (3-13); PLATELET COUNT 475 10^3/uL (150-450); RED BLOOD COUNT 3.02 10^6/uL (4.35-5.55); RED CELL DISTRIBUTION WIDTH 13.7 % (11.5-14.0); SEGMENTED NEUTROPHILS % (AUTO) 50.9 % (42-78); TOTAL CELLS COUNTED % (AUTO) 100 %; WHITE BLOOD COUNT 2.5 10^3/uL (4.0-10.5)
[2018-09-25 08:55] LABS: ALANINE AMINOTRANSFERASE 42 U/L (21-72); ALBUMIN 4.5 g/dL (3.5-5.0); ALKALINE PHOSPHATASE 66 U/L (38-126); ANION GAP 8 (5-19); ASPARTATE AMINO TRANSFERASE 39 U/L (17-59); BILIRUBIN,DIRECT 0.2 mg/dL (0.0-0.4); BILIRUBIN,TOTAL 0.6 mg/dL (0.2-1.3); BLOOD UREA NITROGEN 18 mg/dL (7-20); CALCIUM 9.2 mg/dL (8.4-10.2); CARBON DIOXIDE 31 mmol/L (22-30); CHLORIDE 104 mmol/L (98-107); CHOLESTEROL 206.12 mg/dL (0-200); GLUCOSE 95 mg/dL (75-110); POTASSIUM 4.7 mmol/L (3.6-5.0); SODIUM 143.1 mmol/L (137-145); TRIGLYCERIDES 154 mg/dL (<150)
[2018-09-25 09:06] LABS: DIRECT LDL 140 mg/dL (<100)
[2018-09-25 09:11] LABS: VLDL CHOLESTEROL 30.8 mg/dL (10-31)
[2018-09-25 09:29] LABS: ANISOCYTOSIS 2+; OVALOCYTES SLIGHT; PLATELET COMMENT ADEQUATE; POIKILOCYTOSIS SLIGHT; POLYCHROMASIA SLIGHT
== END ==
LOC: OD 07:07
PROVIDERS: ATTEND Family Medicine Geriatric Medicine
DX: E78.5 Hyperlipidemia, unspecified (principal); D47.3 Essential (hemorrhagic) thrombocythemia; Z79.899 Other long term (current) drug therapy
CPT/HCPCS: 36415; 80053; 80061; 85025

== ENCOUNTER 2018-10-14 10:13 | Emergency (ER) | payer MEDICARE, MEDICAID ==
--- NOTE | 2018-10-14 11:02 | ER Document Report ---
ED Psych Disorder / Suicide - General Chief Complaint: General Weakness Stated Complaint: WEAKNESS Time Seen by Provider: 10/14/18 10:37 TRAVEL OUTSIDE OF THE [place] IN LAST 30 DAYS: No - HPI Notes: Patient is a 62-year-old male that presents to the emergency department for chief complaint of suicidal ideation and depression. Patient states he has had increased depression for the last 2 weeks. A month a go he was started on Zyprexa and Prozac at [facility]. He states these medicines are not helping. He states for the last 2 weeks he has been laying in bed not doing anything. He has gotten out of bed twice a day to get meals and use the bathroom. He reports decreased intake of water. He does state that he has had suicidal thoughts recently. He states "I have thought about taking a knife and cutting myself in the gut to bleed to ". He does state he gets suicidal when his depression gets out of control. He states tomorrow he was planning on going to [facility] to be admitted for psychiatric care. Denies fever, cough, chest pain, palpitations, abdominal pain, nausea, vomiting, and dysuria. Past Medical History: Depression, thrombocytopenia Past Surgical History: Left tibial plateau fracture repair Social History: Denies drugs alcohol and tobacco Family History: Reviewed and noncontributory for presenting illness Allergies: Reviewed, see documented allergy list. REVIEW OF SYSTEMS: CONSTITUTIONAL : No fever No chills No diaphoresis No recent illness Generalized weakness EENT: No vision changes No congestion No sore throat CARDIOVASCULAR: No chest pain No palpitations RESPIRATORY: No shortness of breath No cough No difficulty breathing GASTROINTESTINAL: No abdominal pain No nausea No vomiting No diarrhea GENITOURINARY: No dysuria No hematuria No difficulty urinating MUSCULOSKELETAL: No back pain No leg pain No arm pain SKIN: No rashes No lesions LYMPHATIC: No swollen, enlarged glands. NEUROLOGICAL: No lightheadedness No headache No weakness No paresthesias PSYCHIATRIC: No anxiety depression [place] ideation PHYSICAL EXAMINATION: Vital signs reviewed, nursing noted reviewed. GENERAL: Well-appearing, well-nourished and in no acute distress. HEAD: Atraumatic, normocephalic. EYES: Eyes appear normal, extraocular movements intact, sclera anicteric, conjunctiva are normal. ENT: nares patent, oropharynx clear without exudates. Mildly dry mucous membranes. NECK: Normal range of motion, supple without lymphadenopathy LUNGS: Breath sounds clear to auscultation bilaterally and equal. No wheezes rales or rhonchi. HEART: Regular rate and rhythm without murmurs ABDOMEN: Soft, nontender, normoactive bowel sounds. No rebound, guarding, or rigidity. No masses appreciated. EXTREMITIES: Nontender, good range of motion, no pitting or edema. NEUROLOGICAL: No focal neurological deficits. Moves all extremities spontaneously Motor and sensory grossly intact on exam. PSYCH: Withdrawn, flat affect, suicidal SKIN: Warm, Dry, normal turgor, no rashes or lesions noted on exposed skin - Related Data Allergies/Adverse Reactions: No Known Allergies Allergy (Verified 09/14/18 14:56) Past Medical History - Social History Smoking Status: Never Smoker Chew tobacco use (# tins/day): No Frequency of alcohol use: None Drug Abuse: None Family History: Reviewed & Not Pertinent, Other - alzheimers Patient has suicidal ideation: No Patient has homicidal ideation: No - Past Medical History Cardiac Medical History: Denies: Hx Heart Attack, Hx Hypertension Pulmonary Medical History: Denies: Hx Asthma Neurological Medical History: Denies: Hx Cerebrovascular Accident, Hx Seizures Renal/ Medical History: Denies: Hx Peritoneal Dialysis GI Medical History: Denies: Hx Hepatitis, Hx Hiatal Hernia, Hx Ulcer Psychiatric Medical History: Reports: Hx Bipolar Disorder, Hx Depression Infectious Medical History: Denies: Hx Hepatitis Past Surgical History: Reports: Hx Orthopedic Surgery - left knee. Denies: Hx Open Heart Surgery, Hx Pacemaker - Immunizations Hx Diphtheria, Pertussis, Tetanus Vaccination: - unknown Physical Exam - Vital signs Vitals: Resp Pulse Ox 18 93 10/14/18 10:24 10/14/18 10:24 Course - Re-evaluation Re-evalutation: 10/14/18 11:01 Vitals reviewed. Nursing notes reviewed. Lab work will be ordered for medical clearance. Psych was consulted. Patient resting comfortably. 10/14/18 12:59 Patient's workup is unremarkable. He is medically cleared for further psych evaluation. 10/14/18 15:42 Patient admitted at [facility] psych care Laboratory 10/14/18 10/14/18 10/14/18 11:00 11:00 11:07 WBC 5.7 RBC 3.46 L Hgb 15.5 Hct 44.2 MCV 128 H MCH 44.8 H MCHC 35.1 RDW 14.6 H Plt Count 184 Seg Neutrophils % 77.4 Lymphocytes % 12.2 L Monocytes % 9.6 Eosinophils % 0.5 Basophils % 0.3 Absolute Neutrophils 4.4 Absolute Lymphocytes 0.7 Absolute Monocytes 0.5 Absolute Eosinophils 0.0 Absolute Basophils 0.0 Platelet Comment ADEQUATE Polychromasia SLIGHT Poikilocytosis 1+ Anisocytosis SLIGHT Macrocytosis 4+ Tear Drop Cells 1+ Ovalocytes 1+ Sodium 141.3 Potassium 4.1 Chloride 107 Carbon Dioxide 25 Anion Gap 9 BUN 20 Creatinine 1.16 Est GFR ( Amer) > 60 Est GFR (Non-Af Amer) > 60 Glucose 148 H Calcium 9.4 Magnesium 2.2 Total Bilirubin 1.3 Direct Bilirubin 0.3 Neonat Total Bilirubin Not Reportable Neonat Direct Bilirubin Not Reportable Neonat Indirect Bili Not Reportable AST 29 ALT 30 Alkaline Phosphatase 80 Total Protein 7.2 Albumin 4.6 Urine Color FOZIA Urine Appearance CLOUDY Urine pH 5.0 Ur Specific Finley 1.033 Urine Protein >=500 H Urine Glucose (UA) NEGATIVE Urine Ketones NEGATIVE Urine Blood NEGATIVE Urine Nitrite NEGATIVE Urine Bilirubin SMALL H Urine Urobilinogen 4.0 H Ur Leukocyte Esterase NEGATIVE Urine WBC (Auto) 8 Urine RBC (Auto) 2 U Hyaline Cast (Auto) 122 Squamous Epi Cells Auto 2 Urine Mucus (Auto) MANY Urine Ascorbic Acid 40 H Salicylates < 1.0 L Urine Opiates Screen Urine Methadone Screen Acetaminophen < 10 L Ur Barbiturates Screen Ur Phencyclidine Scrn Ur Amphetamines Screen U Benzodiazepines Scrn Urine Cocaine Screen U Marijuana (THC) Screen Serum Alcohol < 10 10/14/18 11:07 WBC RBC Hgb Hct MCV MCH MCHC RDW Plt Count Seg Neutrophils % Lymphocytes % Monocytes % Eosinophils % Basophils % Absolute Neutrophils Absolute Lymphocytes Absolute Monocytes Absolute Eosinophils Absolute Basophils Platelet Comment Polychromasia Poikilocytosis Anisocytosis Macrocytosis Tear Drop Cells Ovalocytes Sodium Potassium Chloride Carbon Dioxide Anion Gap BUN Creatinine Est GFR ( Amer) Est GFR (Non-Af Amer) Glucose Calcium Magnesium Total Bilirubin Direct Bilirubin Neonat Total Bilirubin Neonat Direct Bilirubin Neonat Indirect Bili AST ALT Alkaline Phosphatase Total Protein Albumin Urine Color Urine Appearance Urine pH Ur Specific Finley Urine Protein Urine Glucose (UA) Urine Ketones Urine Blood Urine Nitrite Urine Bilirubin Urine Urobilinogen Ur Leukocyte Esterase Urine WBC (Auto) Urine RBC (Auto) U Hyaline Cast (Auto) Squamous Epi Cells Auto Urine Mucus (Auto) Urine Ascorbic Acid Salicylates Urine Opiates Screen NEGATIVE Urine Methadone Screen NEGATIVE Acetaminophen Ur Barbiturates Screen NEGATIVE Ur Phencyclidine Scrn NEGATIVE Ur Amphetamines Screen NEGATIVE U Benzodiazepines Scrn NEGATIVE Urine Cocaine Screen NEGATIVE U Marijuana (THC) Screen NEGATIVE Serum Alcohol - Vital Signs Vital signs: Temp Pulse Resp BP Pulse Ox 18 104/83 93 10/14/18 10:24 10/14/18 10:31 10/14/18 10:24 - Laboratory Result Diagrams: 10/14/18 11:00 10/14/18 11:00 Laboratory results interpreted by me: 10/14/18 10/14/18 10/14/18 11:00 11:00 11:07 RBC 3.46 L MCV 128 H MCH 44.8 H RDW 14.6 H Lymphocytes % 12.2 L Glucose 148 H Urine Protein >=500 H Urine Bilirubin SMALL H Urine Urobilinogen 4.0 H Urine Ascorbic Acid 40 H Salicylates < 1.0 L Acetaminophen < 10 L Discharge - Discharge Clinical Impression: Suicidal ideation Fatigue Qualifiers: Fatigue type: unspecified Qualified Code(s): R53.83 - Other fatigue Depression Qualifiers: Depression Type: other depression Qualified Code(s): F32.89 - Other specified depressive episodes Condition: Stable Disposition: PSYCH HOSP/UNIT Referrals: ALVIN ARMAS MD [Primary Care Provider] - Follow up as needed
[2018-10-14 11:13] LABS: ABSOLUTE LYMPHOCYTES (AUTO) 0.7 10^3/uL (0.5-4.7); ABSOLUTE MONOCYTES (AUTO) 0.5 10^3/uL (0.1-1.4); ABSOLUTE NEUT (AUTO) 4.4 10^3/uL (1.7-8.2); BASOPHILS % (AUTO) 0.3 % (0-2); EOSINOPHILS % (AUTO) 0.5 % (0-6); HEMATOCRIT 44.2 % (37.9-51.0); HEMOGLOBIN 15.5 g/dL (13.5-17.0); LYMPHOCYTES % (AUTO) 12.2 % (13-45); MEAN CORPUSCULAR HEMOGLOBIN 44.8 pg (27.0-33.4); MEAN CORPUSCULAR HGB CONC 35.1 g/dL (32.0-36.0); MEAN CORPUSCULAR VOLUME 128 fl (80-97); MONOCYTES % (AUTO) 9.6 % (3-13); PLATELET COUNT 184 10^3/uL (150-450); RED BLOOD COUNT 3.46 10^6/uL (4.35-5.55); RED CELL DISTRIBUTION WIDTH 14.6 % (11.5-14.0); SEGMENTED NEUTROPHILS % (AUTO) 77.4 % (42-78); TOTAL CELLS COUNTED % (AUTO) 100 %; WHITE BLOOD COUNT 5.7 10^3/uL (4.0-10.5)
[2018-10-14 11:33] LABS: APPEARANCE,URINE CLOUDY; BILIRUBIN,URINE SMALL (NEGATIVE); COLOR,URINE AMBER; GLUCOSE, URINE NEGATIVE (NEGATIVE); KETONES,URINE NEGATIVE (NEGATIVE); LEUKOCYTE ESTERASE,URINE NEGATIVE (NEGATIVE); NITRITE,URINE NEGATIVE (NEGATIVE); PROTEIN,URINE >=500 mg/dL (NEGATIVE); URINE SPECIFIC GRAVITY 1.033
[2018-10-14 11:37] LABS: ALANINE AMINOTRANSFERASE 30 U/L (21-72); ALBUMIN 4.6 g/dL (3.5-5.0); ALKALINE PHOSPHATASE 80 U/L (38-126); ANION GAP 9 (5-19); ASPARTATE AMINO TRANSFERASE 29 U/L (17-59); BILIRUBIN,DIRECT 0.3 mg/dL (0.0-0.4); BILIRUBIN,TOTAL 1.3 mg/dL (0.2-1.3); BLOOD UREA NITROGEN 20 mg/dL (7-20); CALCIUM 9.4 mg/dL (8.4-10.2); CARBON DIOXIDE 25 mmol/L (22-30); CHLORIDE 107 mmol/L (98-107); GLUCOSE 148 mg/dL (75-110); POTASSIUM 4.1 mmol/L (3.6-5.0); SODIUM 141.3 mmol/L (137-145); TOTAL PROTEIN 7.2 g/dL (6.3-8.2)
[2018-10-14 11:38] LABS: ACETAMINOPHEN < 10 ug/mL (10-30); ALCOHOL < 10 mg/dL (NONE DETECTED); SALICYLATE < 1.0 mg/dL (2.0-20.0)
[2018-10-14 11:44] LABS: ANISOCYTOSIS SLIGHT; OVALOCYTES 1+; PLATELET COMMENT ADEQUATE; POIKILOCYTOSIS 1+; POLYCHROMASIA SLIGHT; TEAR DROP CELLS 1+
[2018-10-14 11:50] LABS: URINE AMPHETAMINES SCREEN NEGATIVE; URINE BARBITURATES SCREEN NEGATIVE; URINE BENZODIAZEPINES SCREEN NEGATIVE; URINE COCAINE SCREEN NEGATIVE; URINE MARIJUANA (THC) SCREEN NEGATIVE; URINE METHADONE SCREEN NEGATIVE; URINE PHENCYCLIDINE SCREEN NEGATIVE
[2018-10-14 15:53] VITALS: BP 109/74
--- NOTE | 2018-10-14 17:24 | EKG REPORT ---
SEVERITY:- BORDERLINE ECG - SINUS TACHYCARDIA PROBABLE LEFT ATRIAL ABNORMALITY BORDERLINE PROLONGED QT INTERVAL : Confirmed by: Yoli Tripathi MD 14-Oct-2018 17:23:19
== END 2018-10-14 16:15 ==
LOC: ER 10:13
DX: F32.89 Other specified depressive episodes (principal); R53.83 Other fatigue; R53.1 Weakness; G30.9 Alzheimer's disease, unspecified; F02.80 Dementia in other diseases classified elsewhere, unspecified severity, without behavioral disturbance, psychotic disturbance, mood disturbance, and anxiety
CPT/HCPCS: 36415; 80053; 80307; 81001; 83735; 85025; 93005; 93010; 99285

== ENCOUNTER → 2018-11-26 | Outpatient (CLI) | payer MEDICARE, MEDICAID ==
[2018-11-26 07:55] LABS: ABSOLUTE LYMPHOCYTES (AUTO) 1.2 10^3/uL (0.5-4.7); ABSOLUTE MONOCYTES (AUTO) 0.4 10^3/uL (0.1-1.4); ABSOLUTE NEUT (AUTO) 1.7 10^3/uL (1.7-8.2); BASOPHILS % (AUTO) 1.4 % (0-2); EOSINOPHILS % (AUTO) 0.7 % (0-6); HEMATOCRIT 36.1 % (37.9-51.0); LYMPHOCYTES % (AUTO) 35.5 % (13-45); MEAN CORPUSCULAR HEMOGLOBIN 46.3 pg (27.0-33.4); MEAN CORPUSCULAR VOLUME 129 fl (80-97); MONOCYTES % (AUTO) 10.8 % (3-13); PLATELET COUNT 267 10^3/uL (150-450); RED CELL DISTRIBUTION WIDTH 15.5 % (11.5-14.0); SEGMENTED NEUTROPHILS % (AUTO) 51.6 % (42-78); TOTAL CELLS COUNTED % (AUTO) 100 %; WHITE BLOOD COUNT 3.3 10^3/uL (4.0-10.5)
[2018-11-26 08:08] LABS: ALANINE AMINOTRANSFERASE 39 U/L (21-72); ANION GAP 9 (5-19); BLOOD UREA NITROGEN 17 mg/dL (7-20); CARBON DIOXIDE 32 mmol/L (22-30); CHLORIDE 103 mmol/L (98-107); CHOLESTEROL 141.44 mg/dL (0-200); GLUCOSE 104 mg/dL (75-110); POTASSIUM 4.3 mmol/L (3.6-5.0); SODIUM 143.6 mmol/L (137-145); TRIGLYCERIDES 90 mg/dL (<150)
[2018-11-26 08:23] LABS: DIRECT LDL 77 mg/dL (<100)
[2018-11-26 08:28] LABS: ANISOCYTOSIS SLIGHT; OVALOCYTES 1+; PLATELET COMMENT ADEQUATE; POIKILOCYTOSIS 2+; STOMATOCYTES 1+
== END ==
LOC: OD 07:03
PROVIDERS: ATTEND Family Medicine Geriatric Medicine
DX: I10 Essential (primary) hypertension (principal); E78.5 Hyperlipidemia, unspecified; Z79.899 Other long term (current) drug therapy
CPT/HCPCS: 36415; 80048; 80061; 84460; 85025

== ENCOUNTER → 2019-01-28 | Outpatient (CLI) | payer MEDICARE, MEDICAID ==
[2019-01-28 08:10] LABS: ABSOLUTE LYMPHOCYTES (AUTO) 1.2 10^3/uL (0.5-4.7); ABSOLUTE MONOCYTES (AUTO) 0.2 10^3/uL (0.1-1.4); ABSOLUTE NEUT (AUTO) 1.8 10^3/uL (1.7-8.2); BASOPHILS % (AUTO) 0.8 % (0-2); EOSINOPHILS % (AUTO) 1.4 % (0-6); HEMATOCRIT 34.1 % (37.9-51.0); HEMOGLOBIN 12.4 g/dL (13.5-17.0); LYMPHOCYTES % (AUTO) 36.5 % (13-45); MEAN CORPUSCULAR HEMOGLOBIN 47.8 pg (27.0-33.4); MEAN CORPUSCULAR HGB CONC 36.4 g/dL (32.0-36.0); MEAN CORPUSCULAR VOLUME 131 fl (80-97); MONOCYTES % (AUTO) 6.5 % (3-13); RED CELL DISTRIBUTION WIDTH 14.7 % (11.5-14.0); SEGMENTED NEUTROPHILS % (AUTO) 54.8 % (42-78); TOTAL CELLS COUNTED % (AUTO) 100 %; WHITE BLOOD COUNT 3.4 10^3/uL (4.0-10.5)
[2019-01-28 08:33] LABS: ANISOCYTOSIS SLIGHT; POIKILOCYTOSIS SLIGHT; POLYCHROMASIA SLIGHT; TEAR DROP CELLS SLIGHT
[2019-01-28 08:34] LABS: PLATELET CLUMPS PRESENT; PLATELET COMMENT DECREASED; PLATELET COUNT 132 10^3/uL (150-450)
== END ==
LOC: OD 07:02
PROVIDERS: ATTEND Family Medicine Geriatric Medicine
DX: D64.9 Anemia, unspecified (principal); D47.3 Essential (hemorrhagic) thrombocythemia; Z79.899 Other long term (current) drug therapy
CPT/HCPCS: 36415; 85025

== ENCOUNTER → 2019-04-02 | Outpatient (CLI) | payer MEDICARE, MEDICAID ==
[2019-04-02 08:02] LABS: ALANINE AMINOTRANSFERASE 41 U/L (21-72); ANION GAP 7 (5-19); BLOOD UREA NITROGEN 19 mg/dL (7-20); CALCIUM 8.8 mg/dL (8.4-10.2); CARBON DIOXIDE 29 mmol/L (22-30); CHLORIDE 105 mmol/L (98-107); CHOLESTEROL 134.88 mg/dL (0-200); GLUCOSE 98 mg/dL (75-110); POTASSIUM 4.2 mmol/L (3.6-5.0); SODIUM 141.4 mmol/L (137-145); TRIGLYCERIDES 300 mg/dL (<150)
[2019-04-02 08:13] LABS: DIRECT LDL 66 mg/dL (<100)
== END ==
LOC: OD 07:06
PROVIDERS: ATTEND Family Medicine Geriatric Medicine
DX: E78.5 Hyperlipidemia, unspecified (principal); I26.99 Other pulmonary embolism without acute cor pulmonale; I82.409 Acute embolism and thrombosis of unspecified deep veins of unspecified lower extremity; Z79.899 Other long term (current) drug therapy
CPT/HCPCS: 36415; 80048; 80061; 84460

== ENCOUNTER 2019-04-28 12:06 | Emergency (ER) | payer MEDICARE, MEDICAID ==
--- NOTE | 2019-04-28 12:29 | ER Document Report ---
ED Medical Screen (RME) - General Chief Complaint: Suicidal Ideation Stated Complaint: ALTERED MENTAL STATUS Time Seen by Provider: 04/28/19 12:20 Primary Care Provider: ALVIN ARMAS MD [Primary Care Provider] - Follow up as needed Mode of Arrival: Ambulatory Information source: Patient Notes: Patient is a 63-year-old male presenting with [employer] for thoughts of suicide. Patient reports history of depression, schizophrenia and bipolar disorder. He states that he was only 1-1/2-month crack binge which stopped 1 week ago. He states that he says he stopped smoking crack he has started having depression. He states he is thinking about killing himself. He states that he was thinking of stopping his blood thinners in an attempt to kill himself. He denies any homicidal ideation. He is calm and cooperative with staff at this time. He does have a very flat affect. I did update patient on the plan of care the need for blood work, urine, EKG for medical clearance and that he would be speaking with a mental health bioinformatics team member after this and patient was in agreements with this plan. I have greeted and performed a rapid initial assessment of this patient. A comprehensive ED assessment and evaluation of the patient, analysis of test results and completion of the medical decision making process will be conducted by additional ED providers. I have specifically instructed the patient or family members with the patient to immediately return to any nursing staff should anything change in the patient's condition or with their chief complaint. This medical record was dictated with voice recognizing software. There may be grammatical, syntax errors that are unintended. TRAVEL OUTSIDE OF THE [place] IN LAST 30 DAYS: No - Related Data Allergies/Adverse Reactions: No Known Allergies Allergy (Verified 04/28/19 12:07) Past Medical History - Past Medical History Cardiac Medical History: Denies: Hx Heart Attack, Hx Hypertension Pulmonary Medical History: Denies: Hx Asthma Neurological Medical History: Denies: Hx Cerebrovascular Accident, Hx Seizures Renal/ Medical History: Denies: Hx Peritoneal Dialysis GI Medical History: Denies: Hx Hepatitis, Hx Hiatal Hernia, Hx Ulcer Psychiatric Medical History: Reports: Hx Bipolar Disorder, Hx Depression Infectious Medical History: Denies: Hx Hepatitis Past Surgical History: Reports: Hx Orthopedic Surgery - left knee. Denies: Hx Open Heart Surgery, Hx Pacemaker - Immunizations Hx Diphtheria, Pertussis, Tetanus Vaccination: - unknown Physical Exam - Vital signs Vitals: Temp Pulse Resp BP Pulse Ox 97.6 F 94 18 129/70 H 93 04/28/19 12:12 04/28/19 12:12 04/28/19 12:12 04/28/19 12:12 04/28/19 12:12 Course - Vital Signs Vital signs: Temp Pulse Resp BP Pulse Ox 97.6 F 94 18 129/70 H 93 04/28/19 12:12 04/28/19 12:12 04/28/19 12:12 04/28/19 12:12 04/28/19 12:12 Doctor's Discharge - Discharge Referrals: ALVIN ARMAS MD [Primary Care Provider] - Follow up as needed
[2019-04-28 13:14] LABS: APPEARANCE,URINE CLEAR; BILIRUBIN,URINE NEGATIVE (NEGATIVE); COLOR,URINE YELLOW; GLUCOSE, URINE NEGATIVE (NEGATIVE); KETONES,URINE NEGATIVE (NEGATIVE); LEUKOCYTE ESTERASE,URINE NEGATIVE (NEGATIVE); NITRITE,URINE NEGATIVE (NEGATIVE); PROTEIN,URINE NEGATIVE (NEGATIVE); UROBILINOGEN,URINE NEGATIVE mg/dL (<2.0)
[2019-04-28 13:15] LABS: ABSOLUTE LYMPHOCYTES (AUTO) 1.1 10^3/uL (0.5-4.7); ABSOLUTE MONOCYTES (AUTO) 0.2 10^3/uL (0.1-1.4); ABSOLUTE NEUT (AUTO) 1.9 10^3/uL (1.7-8.2); BASOPHILS % (AUTO) 0.7 % (0-2); EOSINOPHILS % (AUTO) 0.8 % (0-6); HEMATOCRIT 38.4 % (37.9-51.0); HEMOGLOBIN 13.5 g/dL (13.5-17.0); MEAN CORPUSCULAR HEMOGLOBIN 43.8 pg (27.0-33.4); MEAN CORPUSCULAR HGB CONC 35.1 g/dL (32.0-36.0); MONOCYTES % (AUTO) 7.1 % (3-13); PLATELET COUNT 478 10^3/uL (150-450); RED BLOOD COUNT 3.08 10^6/uL (4.35-5.55); SEGMENTED NEUTROPHILS % (AUTO) 58.4 % (42-78); TOTAL CELLS COUNTED % (AUTO) 100 %; WHITE BLOOD COUNT 3.3 10^3/uL (4.0-10.5)
[2019-04-28 13:30] LABS: MEAN CORPUSCULAR VOLUME 125 fl (80-97)
[2019-04-28 13:32] LABS: URINE AMPHETAMINES SCREEN NEGATIVE; URINE BARBITURATES SCREEN NEGATIVE; URINE BENZODIAZEPINES SCREEN NEGATIVE; URINE COCAINE SCREEN NEGATIVE; URINE MARIJUANA (THC) SCREEN NEGATIVE; URINE METHADONE SCREEN NEGATIVE; URINE PHENCYCLIDINE SCREEN NEGATIVE
[2019-04-28 13:33] LABS: ALANINE AMINOTRANSFERASE 58 U/L (21-72); ALBUMIN 4.3 g/dL (3.5-5.0); ALKALINE PHOSPHATASE 49 U/L (38-126); ANION GAP 6 (5-19); ASPARTATE AMINO TRANSFERASE 45 U/L (17-59); BILIRUBIN,DIRECT 0.2 mg/dL (0.0-0.4); BILIRUBIN,TOTAL 0.5 mg/dL (0.2-1.3); BLOOD UREA NITROGEN 12 mg/dL (7-20); CARBON DIOXIDE 28 mmol/L (22-30); CHLORIDE 107 mmol/L (98-107); GLUCOSE 132 mg/dL (75-110); POTASSIUM 4.3 mmol/L (3.6-5.0); SODIUM 140.6 mmol/L (137-145); TOTAL PROTEIN 6.9 g/dL (6.3-8.2)
[2019-04-28 13:34] LABS: ACETAMINOPHEN < 10 ug/mL (10-30); ALCOHOL < 10 mg/dL (NONE DETECTED); SALICYLATE < 1.0 mg/dL (2.0-20.0)
--- NOTE | 2019-04-28 13:43 | EKG REPORT ---
SEVERITY:- BORDERLINE ECG - SINUS RHYTHM PROBABLE LEFT ATRIAL ABNORMALITY BORDERLINE T ABNORMALITIES, INFERIOR LEADS : Confirmed by: Vahid Arango MD 28-Apr-2019 13:41:41
[2019-04-28 13:51] LABS: PLATELET COMMENT INCREASED; POIKILOCYTOSIS SLIGHT; POLYCHROMASIA SLIGHT; TEAR DROP CELLS SLIGHT
--- NOTE | 2019-04-28 13:56 | PSYCHOLOGICAL NOTE ---
Psych Note - Psych Note Date seen by psych provider: 04/28/19 Time seen by psych provider: 13:00 Psych Note: Reason for Consult: suicidal ideation Patient is a 62-year-old male that presents to the emergency department for chief complaint of suicidal ideation and depression. He reports that he came to [facility] ED after calling [facility] [employer] for assistance. Patient reports thinking to stop taking his medication has a way to hurt himself; however, confirms he has been taking them as directed and stated he called for assistance because of those thoughts. Patient was seen by his outpatient mental health provider two days ago. He states he was using crack cocaine (last use reported 7 days ago) and since he has stopped using has and in increase of depression with passive suicidal ideation. He reports he came to [facility] for help and identifies help as getting substance abuse treatment. Clinician discussed options for treatment (ie detox, residential, outpatient and intensive outpatient) and patient states he is interested in intensive outpatient treatment; this information was provided. Patient is alert and orientated to person, place, time and circumstance. Mood is euthymic with flat affect. Patient reports passive suicidal ideation (ie no plans, means or intent). Patient Delusions are absent behaviors congruent with an intact reality based presentation i.e. organized and linear thought process. Eye contact is well-maintained. Conversational speech is within normal rate, tone and prosody. Intellectual abilities appear to be within the average range. Attention and concentration are fair. Insight, judgment, impulse control are fair. Diagnosis polysubstance abuse Crack use per patient; last use 7 days ago per patient report History of alcoholism; sober 1 year Depression due to polysubstance abuse No medication recommendations at this time Impression\plan:Patient is cleared from acute psychiatric services. Patient presented with passive suicidal ideation and demonstrated positive insight and judgment by requesting assistance from [facility] and coming to [facility] ED. He has an outpatient mental health provider that he saw 2 days ago (04/26/2019). He reports an increase in depression and suicidal ideation after he stopped using crack cocaine 7 days ago. He requested resource for substance abuse treatment; this was provided. Patient is encouraged to follow up with intensive outpatient substance abuse treatment. Dr. Garcia was consulted and care management this patient; attending physician agreement with recommendations and disposition.
--- NOTE | 2019-04-28 14:49 | ER Document Report ---
ED General <LEVAR SINGH - Last Filed: 04/28/19 15:25> - General Mode of Arrival: Ambulatory Information source: Patient, [facility] Records TRAVEL OUTSIDE OF THE [place] IN LAST 30 DAYS: No - HPI Onset: Other Onset/Duration: Gradual Quality of pain: No pain Severity: None Pain Level: Denies Associated symptoms: None. 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 Patient states that his plan is to to stop taking his blood thinning medication and " from my clot". Patient does admit to a crack cocaine binge over the last couple of weeks and stop 1 week ago. Patient is on several different psychiatric medications and states he has been compliant. He does follow with [facility]. Patient also reported to the nurse that he gave all his money away during his crack binge. Patient denies any physical complaints at this time. (YARON GARCIA) - Related Data Allergies/Adverse Reactions: No Known Allergies Allergy (Verified 04/28/19 12:07) Past Medical History - General Information source: Patient - Social History Smoking Status: Never Smoker Frequency of alcohol use: None Drug Abuse: Cocaine Lives with: Alone Family History: Reviewed & Not Pertinent, Other - alzheimers Patient has suicidal ideation: Yes Patient has homicidal ideation: No - Past Medical History Cardiac Medical History: Denies: Hx Heart Attack, Hx Hypertension Pulmonary Medical History: Denies: Hx Asthma Neurological Medical History: Denies: Hx Cerebrovascular Accident, Hx Seizures Renal/ Medical History: Denies: Hx Peritoneal Dialysis GI Medical History: Denies: Hx Hepatitis, Hx Hiatal Hernia, Hx Ulcer Psychiatric Medical History: Reports: Hx Bipolar Disorder, Hx Depression Infectious Medical History: Denies: Hx Hepatitis Past Surgical History: Reports: Hx Orthopedic Surgery - left knee. Denies: Hx Open Heart Surgery, Hx Pacemaker - Immunizations Hx Diphtheria, Pertussis, Tetanus Vaccination: - unknown <YARON GARCIA - Last Filed: 04/28/19 15:29> Review of Systems <YARON GARCIA - Last Filed: 04/28/19 15:29> - Review of Systems Notes: REVIEW OF SYSTEMS: CONSTITUTIONAL : Denies fever, chills, or sweats. Denies recent illness. Denies weight loss, recent hospitalizations. EENT: Denies visual changes, eye pain. Denies sore throat, oral lesions, difficulty swallowing. CARDIOVASCULAR: Denies chest pain. Denies palpitations. Denies lower extremity edema. RESPIRATORY: Denies cough. Denies shortness of breath, wheezing. GASTROINTESTINAL: Denies abdominal pain or distention. Denies nausea, vomiting, or diarrhea. Denies blood in vomitus, stools, or per rectum. Denies black, tarry stools. Denies constipation. GENITOURINARY: Denies difficulty urinating, painful urination, frequency, blood in urine, testicular pain or penile discharge. MUSCULOSKELETAL: Denies back or neck pain or stiffness. Denies joint pain or swelling. SKIN: Denies rash, lesions or sores. HEMATOLOGIC : Denies easy bruising or bleeding. LYMPHATIC: Denies swollen glands. NEUROLOGICAL: Denies confusion or altered mental status. Denies loss of consciousness. Denies dizziness or lightheadedness. Denies headache. Denies weakness or paralysis. Denies problems difficulty with ambulation, slurred speech. Denies sensory loss, numbness, or tingling. Denies seizures. PSYCHIATRIC: + anxiety or stress. +depression, suicidal ideation, denies homicidal ideation, visual and auditory hallucinations (YARON GARCIA) Physical Exam <YARON GARCIA - Last Filed: 04/28/19 15:29> - Vital signs Vitals: Temp Pulse Resp BP Pulse Ox 97.6 F 94 18 129/70 H 93 04/28/19 12:12 04/28/19 12:12 04/28/19 12:12 04/28/19 12:12 04/28/19 12:12 - Notes Notes: PHYSICAL EXAMINATION: GENERAL: Well-appearing, well-nourished and in no acute distress. HEAD: Atraumatic, normocephalic. EYES: Pupils equal round and reactive to light, extraocular movements intact, sclera anicteric, conjunctiva are normal. ENT: Nares patent, oropharynx clear without exudates. Moist mucous membranes. NECK: Normal range of motion, supple without lymphadenopathy LUNGS: Breath sounds clear to auscultation bilaterally and equal. No wheezes rales or rhonchi. HEART: Regular rate and rhythm without murmurs ABDOMEN: Soft, nontender, nondistended abdomen. No guarding, no rebound. No masses appreciated. Musculoskeletal: Normal range of motion, no pitting or edema. No cyanosis. NEUROLOGICAL: Cranial nerves grossly intact. Normal speech, normal gait. Normal sensory, motor exams PSYCH: Cooperative, admits to suicidal ideation. SKIN: Warm, Dry, normal turgor, no rashes or lesions noted. (YARON GARCIA) Course - Laboratory Result Diagrams: 04/28/19 12:34 04/28/19 12:34 <LEVAR SINGH - Last Filed: 04/28/19 15:25> - Laboratory Result Diagrams: 04/28/19 12:34 04/28/19 12:34 - EKG Interpretation by De EKG shows normal: Sinus rhythm Rate: Normal Rhythm: NSR When compared to previous EKG there are: No significant change <YARON GARCIA - Last Filed: 04/28/19 15:29> - Re-evaluation Re-evalutation: Laboratory 04/28/19 04/28/19 04/28/19 12:34 12:34 12:34 WBC 3.3 L RBC 3.08 L Hgb 13.5 Hct 38.4 MCV 125 H MCH 43.8 H MCHC 35.1 RDW 12.0 Plt Count 478 H Seg Neutrophils % 58.4 Lymphocytes % 33.0 Monocytes % 7.1 Eosinophils % 0.8 Basophils % 0.7 Absolute Neutrophils 1.9 Absolute Lymphocytes 1.1 Absolute Monocytes 0.2 Absolute Eosinophils 0.0 Absolute Basophils 0.0 Platelet Comment INCREASED Polychromasia SLIGHT Poikilocytosis SLIGHT Macrocytosis 4+ Tear Drop Cells SLIGHT Sodium 140.6 Potassium 4.3 Chloride 107 Carbon Dioxide 28 Anion Gap 6 BUN 12 Creatinine 0.91 Est GFR ( Amer) > 60 Est GFR (Non-Af Amer) > 60 Glucose 132 H Calcium 9.0 Total Bilirubin 0.5 Direct Bilirubin 0.2 Neonat Total Bilirubin Not Reportable Neonat Direct Bilirubin Not Reportable Neonat Indirect Bili Not Reportable AST 45 ALT 58 Alkaline Phosphatase 49 Total Protein 6.9 Albumin 4.3 Urine Color YELLOW Urine Appearance CLEAR Urine pH 5.0 Ur Specific Ninole 1.020 Urine Protein NEGATIVE Urine Glucose (UA) NEGATIVE Urine Ketones NEGATIVE Urine Blood NEGATIVE Urine Nitrite NEGATIVE Urine Bilirubin NEGATIVE Urine Urobilinogen NEGATIVE Ur Leukocyte Esterase NEGATIVE Urine WBC (Auto) 1 Urine RBC (Auto) 0 Urine Mucus (Auto) OCC Urine Ascorbic Acid NEGATIVE Salicylates < 1.0 L Urine Opiates Screen Urine Methadone Screen Acetaminophen < 10 L Ur Barbiturates Screen Ur Phencyclidine Scrn Ur Amphetamines Screen U Benzodiazepines Scrn Urine Cocaine Screen U Marijuana (THC) Screen Serum Alcohol < 10 04/28/19 12:34 WBC RBC Hgb Hct MCV MCH MCHC RDW Plt Count Seg Neutrophils % Lymphocytes % Monocytes % Eosinophils % Basophils % Absolute Neutrophils Absolute Lymphocytes Absolute Monocytes Absolute Eosinophils Absolute Basophils Platelet Comment Polychromasia Poikilocytosis Macrocytosis Tear Drop Cells Sodium Potassium Chloride Carbon Dioxide Anion Gap BUN Creatinine Est GFR ( Amer) Est GFR (Non-Af Amer) Glucose Calcium Total Bilirubin Direct Bilirubin Neonat Total Bilirubin Neonat Direct Bilirubin Neonat Indirect Bili AST ALT Alkaline Phosphatase Total Protein Albumin Urine Color Urine Appearance Urine pH Ur Specific Ninole Urine Protein Urine Glucose (UA) Urine Ketones Urine Blood Urine Nitrite Urine Bilirubin Urine Urobilinogen Ur Leukocyte Esterase Urine WBC (Auto) Urine RBC (Auto) Urine Mucus (Auto) Urine Ascorbic Acid Salicylates Urine Opiates Screen NEGATIVE Urine Methadone Screen NEGATIVE Acetaminophen Ur Barbiturates Screen NEGATIVE Ur Phencyclidine Scrn NEGATIVE Ur Amphetamines Screen NEGATIVE U Benzodiazepines Scrn NEGATIVE Urine Cocaine Screen NEGATIVE U Marijuana (THC) Screen NEGATIVE Serum Alcohol Temp Pulse Resp BP Pulse Ox 97.9 F 94 16 109/78 97 04/28/19 13:18 04/28/19 13:18 04/28/19 13:18 04/28/19 13:18 04/28/19 13:18 04/28/19 14:59 63-year-old male with schizoaffective disorder presents with passive suicidal ideation. Patient admits to recent crack binge and stopping 1 week ago. Vital signs reviewed and within normal limits. Patient does not appear toxic or dehydrated. He is in no acute distress. Patient has been seen for similar symptoms. Urine drug screen negative at this time. Behavioral health has evaluated the patient and deemed him safe for discharge. Patient advised to follow-up with ABENA Tamayo. 04/28/19 15:03 Patient was evaluated and treated as appropriate for the patient's presenting s ymptoms and complaint, with consideration of any critical or life threatening conditions that may be associated with their obtained history and exam as noted above. All results were discussed with patient. Patient provided the opportunity to ask questions, and express concerns. Patient was educated on treatments based on their presumed diagnosis as noted above. At this time we will discharge the patient with return precautions and follow-up recommendations. Verbal discharge instructions given a the bedside. Medication warnings reviewed. Patient is in agreement with this plan and has verbalized understanding of return precautions. After careful consideration I feel that that patient can be safely discharged from the emergency department, they were advised to followup with a primary car e physician in 2-3 days. Dictation on this chart was performed using voice recognition software and may result in unintended grammatical, spelling, syntax or errors. (YARON GARCIA) - Vital Signs Vital signs: Temp Pulse Resp BP Pulse Ox 97.9 F 94 16 109/78 97 04/28/19 13:18 04/28/19 13:18 04/28/19 13:18 04/28/19 13:18 04/28/19 13:18 - Laboratory Laboratory results interpreted by ut: 04/28/19 04/28/19 12:34 12:34 WBC 3.3 L RBC 3.08 L MCV 125 H MCH 43.8 H Plt Count 478 H Glucose 132 H Salicylates < 1.0 L Acetaminophen < 10 L Discharge <LEVAR SINGH - Last Filed: 04/28/19 15:25> <YARON GARCIA - Last Filed: 04/28/19 15:29> - Discharge Clinical Impression: Passive suicidal ideations, History of crack cocaine use Condition: Good Disposition: HOME, SELF-CARE Additional Instructions: You have been evaluated both medical and behavioral health teams have been deemed appropriate for discharge. You have been provided a resource list of area providers including mobile crisis contact information, detox facilities, and outpatient mental health/substance abuse providers including intensive outpatient. You are highly encouraged to follow-up with intensive outpatient substance abuse treatment as you have identified interested in. COCAINE ABUSE: Cocaine causes many dangerous medical problems. Problems can occur even with "usual" amounts. Cocaine affects judgement, creating a sense of invulnerability. Cocaine users often make bad decisions that seem "great" at the time. Most cocaine users eventually will be hurt by bad job performance, damaged personal relations, crime, and unsafe sexual practices. Toxic effects of cocaine can include seizures, hallucinations, delusions, high blood pressure, heart damage, or sudden . There's always the risk of a "bad batch." But heart attacks, brain hemorrhages, or cardiac arrest can occur unpredictably even with "normal" use. Injection of cocaine is risky for abscesses, endocarditis (heart infection), pneumonia, and AIDS. Withdrawal from cocaine often causes anxiety and drug cravings. Some users become paranoid and psychotic. Many treatment programs are available, but you must make the decision to quit. Medication can be prescribed to control the symptoms of cocaine toxicity (beta blockers or benzodiazepines). Withdrawal symptoms may require tranquilizers. DEPRESSION: Your evaluation reveals that you have mental depression. While symptoms may be vague, they often include disturbance of sleep, fatigue, loss of appetite, and general loss of interest in life. While depression may be a side effect of drugs, or a reaction to a major change in your life, many cases have no known cause. If depression is acute, and related to a major loss in your life, you can expect it to clear completely with time. If you have been depressed a long time, are prone to repeated bouts of depression or low mood, or have been thinking of suicide, get help. Depression can be treated with anti-depressant medication and counselling. Long-term depression will often take a few weeks to clear, even with appropriate medication. Follow-up care is important. SUICIDAL IDEATION: Suicidal ideation is a common medical term for thoughts about suicide, wh ich may be as detailed as a formulated plan, without the suicidal act itself. Although most people who undergo suicidal ideation do not commit suicide, some go on to make suicide attempts. The range of suicidal ideation varies greatly from fleeting to detailed planning, role playing, and unsuccessful attempts. While thoughts about suicide are common, most people do not carry out serious actions to commit suicide. Based upon your evaluation and discussion with you, we do not believe you are currently at risk to act upon your thoughts of suicide. You have agreed to return to the Emergency Department, at any time, if you feel inclined to act upon your suicidal thoughts. FOLLOW-UP CARE: If you have been referred to a physician for follow-up care, call the physicians office for an appointment as you were instructed or within the next two days. If you experience worsening or a significant change in your symptoms, notify the physician immediately or return to the Emergency Department at any time for re-evaluation. Referrals: ALVIN ARMAS MD [Primary Care Provider] - Follow up as needed [facility] [Outside] - Follow up in 3-5 days
[2019-04-28 16:04] VITALS: BP 114/77
== END 2019-04-28 16:00 | disposition home or self-care (01) ==
LOC: ER 12:06
DX: R45.851 Suicidal ideations (principal); F32.9 Major depressive disorder, single episode, unspecified; F20.9 Schizophrenia, unspecified; F14.10 Cocaine abuse, uncomplicated; F19.10 Other psychoactive substance abuse, uncomplicated; Z79.02 Long term (current) use of antithrombotics/antiplatelets
CPT/HCPCS: 36415; 80053; 80307; 81001; 85025; 93005; 93010; 99285

== ENCOUNTER → 2019-06-01 | Outpatient (CLI) | payer MEDICARE, MEDICAID ==
[2019-06-01 08:32] LABS: CHOLESTEROL 139.13 mg/dL (0-200); TRIGLYCERIDES 204 mg/dL (<150)
[2019-06-01 08:43] LABS: DIRECT LDL 68 mg/dL (<100)
[2019-06-01 08:44] LABS: VLDL CHOLESTEROL 40.8 mg/dL (10-31)
[2019-06-01 08:48] LABS: ABSOLUTE EOSINOPHILS # (AUTO) 0.1 10^3/uL (0.0-0.6); ABSOLUTE LYMPHOCYTES (AUTO) 1.4 10^3/uL (0.5-4.7); ABSOLUTE MONOCYTES (AUTO) 0.3 10^3/uL (0.1-1.4); ABSOLUTE NEUT (AUTO) 1.8 10^3/uL (1.7-8.2); BASOPHILS % (AUTO) 0.8 % (0-2); EOSINOPHILS % (AUTO) 1.8 % (0-6); HEMATOCRIT 37.9 % (37.9-51.0); HEMOGLOBIN 13.6 g/dL (13.5-17.0); LYMPHOCYTES % (AUTO) 38.7 % (13-45); MEAN CORPUSCULAR HEMOGLOBIN 43.4 pg (27.0-33.4); MEAN CORPUSCULAR HGB CONC 35.9 g/dL (32.0-36.0); MEAN CORPUSCULAR VOLUME 121 fl (80-97); MONOCYTES % (AUTO) 7.6 % (3-13); PLATELET COUNT 339 10^3/uL (150-450); RED BLOOD COUNT 3.13 10^6/uL (4.35-5.55); RED CELL DISTRIBUTION WIDTH 12.3 % (11.5-14.0); SEGMENTED NEUTROPHILS % (AUTO) 51.1 % (42-78); TOTAL CELLS COUNTED % (AUTO) 100 %; WHITE BLOOD COUNT 3.6 10^3/uL (4.0-10.5)
[2019-06-01 10:07] LABS: OVALOCYTES SLIGHT; PLATELET CLUMPS PRESENT; PLATELET LARGE PRESENT; TEAR DROP CELLS SLIGHT
[2019-06-01 10:08] LABS: PLATELET COMMENT ADEQUATE
== END ==
LOC: OD 07:03
PROVIDERS: ATTEND Family Medicine Geriatric Medicine
DX: E78.5 Hyperlipidemia, unspecified (principal); I26.99 Other pulmonary embolism without acute cor pulmonale; I82.409 Acute embolism and thrombosis of unspecified deep veins of unspecified lower extremity; Z79.899 Other long term (current) drug therapy
CPT/HCPCS: 36415; 80061; 84460; 85025

== ENCOUNTER 2019-08-02 13:02 | Emergency (ER) | payer MEDICARE, MEDICAID ==
--- NOTE | 2019-08-02 14:45 | ER Document Report ---
Entered by RUMA JAMES SCRIBE 08/02/19 1347 Acting as scribe for:GIOVANNA GARVIN MD ED Psych Disorder / Suicide - General Stated Complaint: SUICIDAL IDEATION Time Seen by Provider: 08/02/19 13:09 Primary Care Provider: ALVIN WILLIS MD [Primary Care Provider] - Follow up as needed Mode of Arrival: Ambulatory Information source: Patient, [facility] Records Notes: Patient is a 63-year-old male that presents to the emergency department today from [facility]. Patient states that he went to his psych doctor at [facility] this morning at 8:00am due to increased depression. They arranged for him to be a voluntary admission to [facility]. Patient reports that "about two months ago" he was found to have a pulmonary embolism while at [facility]. Patient reports that he initially had gone to [facility] for mental health concerns, stating his depression was getting bad. Patient states he was found at that time to have a PE. Patient states he stayed at [facility] for 1 week medically for the PE and then another week for the mental health concerns. Patient reports that he is not really sure why his depression seems to randomly get worse but he states this is normal for him. Patient denies any new or different things that he thinks could be causing this increased depression. Patient states it "just happens". It seems that the patient was accepted and admitted to [facility], but when they found that he did not bring his medications with him, they sent him to the emergency room stating that they could not treat him because he is on a blood thinner. The blood thinner is Eliquis. He was able to call a friend of his to come to the emergency room, get his house funk and go pecan picker his medications. His friend brought back the medications and we have them here with the patient at this time. When we did call over to [facility] about this patient, we were told that they wanted lab work done, medical clearance, but then did not guarantee that they would take the patient back. Víctor Le called over to [facility] to clarify about the patient since he was accepted by one of their psychiatrists, and now they are refusing to take him back. The patient was sent to [facility] as a voluntary admission due to his reported depression. He Dr. Iesha Oconnell was the accepting. When we asked to speak with her about the patient, we are told that she is refusing to speak to me and that I would have to speak with Dr. Esposito tomorrow morning. TRAVEL OUTSIDE OF THE [place] IN LAST 30 DAYS: No - Related Data Allergies/Adverse Reactions: No Known Allergies Allergy (Verified 04/28/19 12:07) Past Medical History - General Information source: Patient, [facility] Records - Social History Smoking Status: Never Smoker Cigarette use (# per day): No Chew tobacco use (# tins/day): No Smoking Education Provided: No Frequency of alcohol use: None Drug Abuse: None Lives with: Alone Family History: Reviewed & Not Pertinent, Other - alzheimers - Past Medical History Cardiac Medical History: Reports: Hx Pulmonary Embolism Psychiatric Medical History: Reports: Hx Bipolar Disorder, Hx Depression Past Surgical History: Reports: Hx Orthopedic Surgery - left knee - Immunizations Hx Diphtheria, Pertussis, Tetanus Vaccination: - unknown Review of Systems - Review of Systems Constitutional: No symptoms reported EENT: No symptoms reported Cardiovascular: See HPI, Other - Recent PE Respiratory: No symptoms reported Gastrointestinal: No symptoms reported Genitourinary: No symptoms reported Male Genitourinary: No symptoms reported Musculoskeletal: No symptoms reported Skin: No symptoms reported Hematologic/Lymphatic: No symptoms reported Neurological/Psychological: See HPI, Depression -: Yes All other systems reviewed and negative Physical Exam - Vital signs Vitals: Temp Pulse Resp BP Pulse Ox 97.5 F 86 18 122/85 96 08/02/19 13:09 08/02/19 13:09 08/02/19 13:09 08/02/19 13:09 08/02/19 13:09 - Notes Notes: Physical Exam: General: Alert, appears well, pleasant, does state he is depressed. HEENT: Normocephalic. Atraumatic. PERRL. Extraocular movements intact. Oropharynx clear. Neck: Supple. Non-tender. Respiratory: No respiratory distress. Clear and equal breath sounds bilaterally. Cardiovascular: Regular rate and rhythm. Abdominal: Normal Inspection. Non-tender. No distension. Normal Bowel Sounds. Back: No gross abnormalities. Extremities: Moves all four extremities. Upper extremities: Normal inspection. Normal ROM. Lower extremities: Normal inspection. No edema. Normal ROM. Neurological: Normal cognition. AAOx4. Normal speech. Psychological: Pleasant. Endorses depression. Skin: Warm. Dry. Normal color. Course - Re-evaluation Re-evalutation: 08/02/19 14:50 Patient stopped me as I was walking by the room and wanted to talk about medication changes, stating he thinks his psych meds need to be adjusted. 08/02/19 15:58 After the doctor at [facility] refused to take the patient back, I went in for an in-depth interview with the patient. Turns out he has depression on a chronic basis. He specifically denies any thoughts of self-harm. He rode his moped from [place] [id number] to [facility] thinking he might need his psychiatric medications adjusted to help his depression. They decided to admit him to [facility]. He was taken to his home by a friend so he could drop off his moped, and then the friend took him to [facility]. After he had been admitted, they found out that he did not bring his medications with him, then learned 1 of the medications was Eliquis which he takes for pulmonary embolus. At that point they sent the patient to the emergency room. The patient specifically denies any thoughts of self-harm and states he only went there to see if they could adjust his psychiatric medications. He does feel comfortable going home and continuing his regular medications, and trying to see his mental health providers in the office again. He is going to call his friend to come get him to take him home. - Vital Signs Vital signs: Temp Pulse Resp BP Pulse Ox 97.5 F 86 18 122/85 96 08/02/19 13:09 08/02/19 13:09 08/02/19 13:09 08/02/19 13:09 08/02/19 13:09 Discharge - Discharge Clinical Impression: Schizoaffective disorder Qualifiers: Schizoaffective disorder type: unspecified Qualified Code(s): F25.9 - Schizoaffective disorder, unspecified Depression Qualifiers: Depression Type: unspecified Qualified Code(s): F32.9 - Major depressive di sorder, single episode, unspecified Condition: Stable Disposition: HOME, SELF-CARE Additional Instructions: Continue your regular medications. Follow-up with your mental health providers at [facility] or go see Dr. Willis to discuss your depression management. RETURN TO THE EMERGENCY ROOM IF ANY NEW OR WORSENING SYMPTOMS. Referrals: ALVIN WILLIS MD [Primary Care Provider] - Follow up as needed [facility] [Provider Group] - Follow up as needed Scribe Attestation: 08/02/19 13:49 I personally performed the services described in the documentation, reviewed and edited the documentation which was dictated to the scribe in my presence, and it accurately records my words and actions. I personally performed the services described in the documentation, reviewed and edited the documentation which was dictated to the scribe in my presence, and it accurately records my words and actions.
[2019-08-02 16:29] VITALS: BP 146/77
--- NOTE | 2019-08-03 09:27 | EKG REPORT ---
SEVERITY:- NORMAL ECG - SINUS RHYTHM : Confirmed by: Yoli Tripathi MD 03-Aug-2019 09:26:47
== END 2019-08-02 16:29 | disposition home or self-care (01) ==
LOC: ER 13:02
DX: F32.9 Major depressive disorder, single episode, unspecified (principal); F25.9 Schizoaffective disorder, unspecified; I26.99 Other pulmonary embolism without acute cor pulmonale; Z79.02 Long term (current) use of antithrombotics/antiplatelets; Z79.899 Other long term (current) drug therapy
CPT/HCPCS: 93005; 93010; 99284

== ENCOUNTER → 2019-08-24 | Outpatient (CLI) | payer MEDICARE, MEDICAID ==
[2019-08-24 09:13] LABS: ABSOLUTE EOSINOPHILS # (AUTO) 0.1 10^3/uL (0.0-0.6); ABSOLUTE LYMPHOCYTES (AUTO) 1.1 10^3/uL (0.5-4.7); ABSOLUTE MONOCYTES (AUTO) 0.5 10^3/uL (0.1-1.4); ABSOLUTE NEUT (AUTO) 4.9 10^3/uL (1.7-8.2); BASOPHILS % (AUTO) 0.7 % (0-2); EOSINOPHILS % (AUTO) 0.9 % (0-6); HEMATOCRIT 39.4 % (37.9-51.0); HEMOGLOBIN 13.9 g/dL (13.5-17.0); MEAN CORPUSCULAR HEMOGLOBIN 42.8 pg (27.0-33.4); MEAN CORPUSCULAR HGB CONC 35.3 g/dL (32.0-36.0); MEAN CORPUSCULAR VOLUME 121 fl (80-97); MONOCYTES % (AUTO) 7.8 % (3-13); PLATELET COUNT 515 10^3/uL (150-450); RED BLOOD COUNT 3.25 10^6/uL (4.35-5.55); RED CELL DISTRIBUTION WIDTH 13.8 % (11.5-14.0); SEGMENTED NEUTROPHILS % (AUTO) 73.6 % (42-78); TOTAL CELLS COUNTED % (AUTO) 100 %; WHITE BLOOD COUNT 6.7 10^3/uL (4.0-10.5)
[2019-08-24 09:34] LABS: CHOLESTEROL 158.12 mg/dL (0-200); TRIGLYCERIDES 208 mg/dL (<150)
[2019-08-24 09:36] LABS: OVALOCYTES SLIGHT; PLATELET COMMENT INCREASED; POLYCHROMASIA SLIGHT
[2019-08-24 09:46] LABS: DIRECT LDL 87 mg/dL (<100)
[2019-08-24 10:29] LABS: FOLATE > 20.00 ng/mL (>2.76); VLDL CHOLESTEROL 41.6 mg/dL (10-31)
== END ==
LOC: OD 07:03
PROVIDERS: ATTEND Family Medicine Geriatric Medicine
DX: E78.5 Hyperlipidemia, unspecified (principal); D69.6 Thrombocytopenia, unspecified; R71.8 Other abnormality of red blood cells; Z79.899 Other long term (current) drug therapy
CPT/HCPCS: 36415; 80061; 82607; 82746; 84460; 85025

== ENCOUNTER → 2019-10-15 | Outpatient (CLI) | payer MEDICARE, MEDICAID ==
[2019-10-15 08:13] LABS: CHOLESTEROL 145.16 mg/dL (0-200); TRIGLYCERIDES 189 mg/dL (<150)
[2019-10-15 08:24] LABS: DIRECT LDL 74 mg/dL (<100)
[2019-10-15 08:25] LABS: VLDL CHOLESTEROL 37.8 mg/dL (10-31)
== END ==
LOC: OD 07:03
PROVIDERS: ATTEND Family Medicine Geriatric Medicine
DX: E78.5 Hyperlipidemia, unspecified (principal); Z79.899 Other long term (current) drug therapy
CPT/HCPCS: 36415; 80061; 84460

== ENCOUNTER 2019-12-03 14:04 | Emergency (ER) | payer MEDICARE, MEDICAID ==
--- NOTE | 2019-12-03 14:21 | ER Document Report ---
ED General - General Chief Complaint: Altered Mental Status Stated Complaint: ALTERED Primary Care Provider: ALVIN ARMAS MD [Primary Care Provider] - Follow up as needed Notes: 64-year-old male with a long psychiatric history presents with altered mental status. He feels confused and was brought by a neighbor who is not here to give a story. He recently increased his hydroxyzine dose and takes over 6 psychoactive medications for chronic psychiatric disease. Chronic loose Nations unchanged no SI no HI no substance abuse no trauma. TRAVEL OUTSIDE OF THE [place] IN LAST 30 DAYS: No - Related Data Allergies/Adverse Reactions: No Known Allergies Allergy (Verified 04/28/19 12:07) Past Medical History - Social History Smoking Status: Never Smoker Family History: Reviewed & Not Pertinent, Other - alzheimers - Past Medical History Cardiac Medical History: Reports: Hx Pulmonary Embolism Denies: Hx Heart Attack, Hx Hypertension Pulmonary Medical History: Denies: Hx Asthma Neurological Medical History: Denies: Hx Cerebrovascular Accident, Hx Seizures Renal/ Medical History: Denies: Hx Peritoneal Dialysis GI Medical History: Denies: Hx Hepatitis, Hx Hiatal Hernia, Hx Ulcer Psychiatric Medical History: Reports: Hx Bipolar Disorder, Hx Depression Infectious Medical History: Denies: Hx Hepatitis Past Surgical History: Reports: Hx Orthopedic Surgery - left knee. Denies: Hx Open Heart Surgery, Hx Pacemaker - Immunizations Hx Diphtheria, Pertussis, Tetanus Vaccination: - unknown Review of Systems - Review of Systems Notes: REVIEW OF SYSTEMS GEN: Denies fever, chills, weight loss ENT: Denies sore throat, nasal discharge, ear pain EYES: Denies blurry vision, eye pain, discharge CV: Denies chest pain, palpitations, edema RESP: Denies cough, shortness of breath, wheezing GI: Denies abdominal pain, nausea, vomiting, diarrhea MSK: Denies joint pain/swelling, edema, SKIN: Denies rash, skin lesions LYMPH: Denies swollen glands/lymph nodes NEURO: Denies headache, focal weakness or numbness, dizziness PSYCH: Denies depression, suicidal or homicidal ideation PHYSICAL EXAMINATION General: No acute distress, well-nourished Head: Atraumatic, normocephalic ENT: Mouth normal, oropharynx moist, no exudates or tonsillar enlargement Eyes: Conjunctiva normal, pupils equal, lids normal Neck: No JVD, supple, no guarding CVS: Normal rate, regular rhythm, no murmurs Resp: No resp distress, equal and normal breath sounds bilaterally GI: Nondistended, soft, no tenderness to palpation, no rebound or guarding Ext: No deformities, no edema, normal range of motion in upper and lower ext Back: No CVA or midline TTP Skin: No rash, warm Lymphatic: No lymphadeopathy noted Neuro: Awake, alert. Face symmetric. GCS 15. : Poor eye contact Physical Exam - Vital signs Vitals: Temp Pulse Resp BP Pulse Ox 98.3 F 88 18 96/73 L 97 12/03/19 14:12 12/03/19 14:12 12/03/19 14:12 12/03/19 14:12 12/03/19 14:12 Course - Re-evaluation Re-evalutation: 12/03/19 14:39 Confusion/AMS in a patient with chronic psychosis Psychotic snow does not seem to be off baseline. After I left the room he compl ained of suicidal ideation with a plan to the nurse. Medically cleared IVC protocol initiated 12/03/19 15:23 Defer to psych regarding IVC - Vital Signs Vital signs: Temp Pulse Resp BP Pulse Ox 98.3 F 88 18 96/73 L 97 12/03/19 14:12 12/03/19 14:12 12/03/19 14:12 12/03/19 14:12 12/03/19 14:12 - Laboratory Result Diagrams: 12/03/19 14:52 12/03/19 14:52 Discharge - Discharge Clinical Impression: Suicidal ideation Condition: Fair Disposition: PSYCH HOSP/UNIT Referrals: ALVIN ARMAS MD [Primary Care Provider] - Follow up as needed
[2019-12-03 15:08] LABS: ABSOLUTE EOSINOPHILS # (AUTO) 0.1 10^3/uL (0.0-0.6); ABSOLUTE LYMPHOCYTES (AUTO) 0.9 10^3/uL (0.5-4.7); ABSOLUTE MONOCYTES (AUTO) 0.6 10^3/uL (0.1-1.4); ABSOLUTE NEUT (AUTO) 2.4 10^3/uL (1.7-8.2); BASOPHILS % (AUTO) 1.1 % (0-2); HEMATOCRIT 38.2 % (37.9-51.0); LYMPHOCYTES % (AUTO) 22.7 % (13-45); MEAN CORPUSCULAR HEMOGLOBIN 43.9 pg (27.0-33.4); MEAN CORPUSCULAR HGB CONC 36.6 g/dL (32.0-36.0); MEAN CORPUSCULAR VOLUME 120 fl (80-97); MONOCYTES % (AUTO) 15.6 % (3-13); PLATELET COUNT 540 10^3/uL (150-450); RED BLOOD COUNT 3.19 10^6/uL (4.35-5.55); RED CELL DISTRIBUTION WIDTH 12.9 % (11.5-14.0); SEGMENTED NEUTROPHILS % (AUTO) 57.6 % (42-78); TOTAL CELLS COUNTED % (AUTO) 100 %; WHITE BLOOD COUNT 4.1 10^3/uL (4.0-10.5)
[2019-12-03 15:22] LABS: ANION GAP 10 (5-19); BLOOD UREA NITROGEN 18 mg/dL (7-20); CALCIUM 9.6 mg/dL (8.4-10.2); CARBON DIOXIDE 30 mmol/L (22-30); CHLORIDE 101 mmol/L (98-107); GLUCOSE 97 mg/dL (75-110); POTASSIUM 4.3 mmol/L (3.6-5.0)
[2019-12-03 15:24] LABS: ACETAMINOPHEN < 10 ug/mL (10-30); ALCOHOL < 10 mg/dL (NONE DETECTED); SALICYLATE < 1.0 mg/dL (2.0-20.0)
[2019-12-03 15:28] LABS: PLATELET COMMENT INCREASED
--- NOTE | 2019-12-03 15:32 | PSYCHOLOGICAL NOTE ---
Psych Note - Psych Note Date seen by psych provider: 12/03/19 Time seen by psych provider: 15:00 Psych Note: Reason For Consult:Suicidal ideation Consent Permissions:none provided Patient discloses having suicidal thoughts for a month however cannot remember why he ended up coming to [facility] today. He reports that he has been experiencing confusion. When asked about medications he reports he does not remember however does confirm that his Invega was increased not his Vistaril. Patient states multiple plans on how he would harm himself however reports that he came to [facility] because it was "the most expedient way possible." When asked for clarification he reported it would be the fastest way to get help. Patient denies wanting to . He then states "I am suicidal....I'm going to kill myself like a bunch of my family members did." Patient is alert and orientated to person, place, time and circumstance. Patient is noted to have patches of light purple to lavender hair. Mood and affect is flat. Patient reports passive suicidal ideation with multiple plans but denies wanting to . Patient denies homicidal ideation. Delusions are absent and behaviors congruent with an intact reality based presentation ie organized and linear thought process. Eye contact is fair; he is noted to be looking around the room and stare at the wall. Conversational speech is flat. Intellectual abilities appear to be within the average range. Attention and concentration are fair. Insight, judgment, impulse control are fair. Patient has an outpatient provider with [facility] and has current medications as follows: Vistaril 25mg three times a day Welbutrin 150mg daily Invega 6mg daily (this has just been increased from 3mg on 11/15/2019) Effexor 225mg daily Impression\\plan: Patient is recommended for IVC. While patient's suicidal ideation appears to be passive in nature which he reports not wanting to , patient has been experiencing significant confusion. Patient presents as if he is responding to internal stimuli i.e. visual hallucinations. He presents with both flat mood and affect. Patient has received multiple medication adjustments over the last 3 months which included the discontinuation of Abilify in September, the discontinuation of Lamictal in October and then increase in Invega this month. Patient needs inpatient psychiatric treatment to stabilize his medications to ensure no further decompensation. Dr. Garcia was consulted to care management of this patient; attending physicians in agreement with recommendations and disposition.
[2019-12-03 18:33] LABS: APPEARANCE,URINE SLIGHTLY-CLOUDY; BILIRUBIN,URINE NEGATIVE (NEGATIVE); COLOR,URINE AMBER; GLUCOSE, URINE NEGATIVE (NEGATIVE); KETONES,URINE TRACE mg/dL (NEGATIVE); LEUKOCYTE ESTERASE,URINE NEGATIVE (NEGATIVE); NITRITE,URINE NEGATIVE (NEGATIVE); PROTEIN,URINE NEGATIVE (NEGATIVE)
--- NOTE | 2019-12-03 18:41 | EKG REPORT ---
SEVERITY:- BORDERLINE ECG - SINUS RHYTHM PROBABLE LEFT ATRIAL ABNORMALITY : Confirmed by: Vania Mueller 03-Dec-2019 18:40:23
[2019-12-03 18:46] LABS: URINE AMPHETAMINES SCREEN NEGATIVE; URINE BARBITURATES SCREEN NEGATIVE; URINE BENZODIAZEPINES SCREEN NEGATIVE; URINE COCAINE SCREEN NEGATIVE; URINE MARIJUANA (THC) SCREEN NEGATIVE; URINE METHADONE SCREEN NEGATIVE; URINE PHENCYCLIDINE SCREEN NEGATIVE
[2019-12-03] MEDS ORDERED: SUCRALFATE 1 GM TABLET PO ONE (23:25)
--- NOTE | 2019-12-04 09:50 | PSYCHOLOGICAL NOTE ---
Psych Note - Psych Note Date seen by psych provider: 12/04/19 Time seen by psych provider: 09:25 Psych Note: Reason For Consult:Suicidal ideation Consent Permissions:none provided Check in conducted with patient: Patient reports he is feeling much better today. His mood is euthymic with congruent affect as evidenced by smiling and engaging with clinician. He denies any thoughts of wanting to hurt himself and would like to follow up with his outpatient mental health provided, [facility]. Patient has an outpatient provider with [facility] and has current medications as follows: Vistaril 25mg three times a day Welbutrin 150mg daily Invega 6mg daily (this has just been increased from 3mg on 11/15/2019) Effexor 225mg daily Impression\plan: Patient is recommended for rescind of IVC and is cleared from acute psychiatric services. he is no longer confused and denies wanting to harm himself. Patient reports he would like to follow up with his outpatient mental health provider for his medication concerns. He is highly encouraged to engage in therapy to build his positive coping skills. 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 Dr. Garcia was consulted to care management of this patient; attending physicians in agreement with recommendations and disposition.
--- NOTE | 2019-12-04 10:48 | ER Document Report ---
Doctor's Note Notes: 12/04/19 10:47 Patient was seen by my attending physician Dr. Kellogg who did rescind the IVC paperwork and evaluated the patient. I have printed discharge instructions.
[2019-12-04 11:00] VITALS: BP 102/61
== END 2019-12-04 11:01 | disposition home or self-care (01) ==
LOC: ER 14:04
DX: R45.851 Suicidal ideations (principal); F29 Unspecified psychosis not due to a substance or known physiological condition; Z79.899 Other long term (current) drug therapy
CPT/HCPCS: 93005; 36415; 82962; 80307 ×4; 85025; 80048; 81001; 93010; A9270; 99285

== ENCOUNTER 2019-12-07 11:33 | Emergency (ER) | payer MEDICARE, MEDICAID ==
[2019-12-07] MEDS ORDERED: NORMAL SALINE 1000 ML 1,000 ML IV ONE (12:01)
[2019-12-07 12:13] LABS: INTERNATIONAL RATION (INR) 1.19; PROTHROMBIN TIME 15.2 SEC (11.4-15.4)
--- NOTE | 2019-12-07 12:29 | ER Document Report ---
ED General <LESLIE KHAN - Last Filed: 12/07/19 14:18> - General Mode of Arrival: Medic Information source: Patient Cannot obtain history due to: Altered mental status TRAVEL OUTSIDE OF THE [place] IN LAST 30 DAYS: No - HPI Onset: Just prior to arrival Onset/Duration: Persistent Quality of pain: Achy Severity: Mild Pain Level: 1 Associated symptoms: None Exacerbated by: Denies Relieved by: Denies Similar symptoms previously: Yes Recently seen / treated by doctor: Yes <VICKIE SINGH - Last Filed: 12/07/19 15:40> - General Stated Complaint: BEHAVIORAL ISSUES Time Seen by Provider: 12/07/19 11:47 Primary Care Provider: ALVIN ARMAS MD [Primary Care Provider] - Follow up as needed Notes: Patient is a 64-year-old male presenting to the emergency department from [facility] where the patient went earlier today requesting medication. While there the patient was found to have a low blood pressure slightly altered mental status and report of suicidal ideation and auditory hallucinations. On records review the patient has been found to be at this emergency department recently for mental health evaluation. Patient was ultimately discharged home. Patient states that today he rode his bicycle several miles to get to [place] to request medications secondary to a"blood disease". Patient also reports recent use of crack cocaine. (VICKIE SINGH) - Related Data Allergies/Adverse Reactions: No Known Allergies Allergy (Verified 04/28/19 12:07) Past Medical History - General Information source: Patient, Dr. Monet, [facility] Records - Social History Smoking Status: Unknown if Ever Smoked Frequency of alcohol use: None Drug Abuse: Cocaine Family History: Reviewed & Not Pertinent, Other - alzheimers Patient has suicidal ideation: Yes Patient has homicidal ideation: No - Past Medical History Cardiac Medical History: Reports: Hx Pulmonary Embolism Denies: Hx Heart Attack, Hx Hypertension Pulmonary Medical History: Denies: Hx Asthma Neurological Medical History: Denies: Hx Cerebrovascular Accident, Hx Seizures Endocrine Medical History: Reports: Other - Thrombocythemia Renal/ Medical History: Denies: Hx Peritoneal Dialysis GI Medical History: Denies: Hx Hepatitis, Hx Hiatal Hernia, Hx Ulcer Psychiatric Medical History: Reports: Hx Bipolar Disorder, Hx Depression Infectious Medical History: Denies: Hx Hepatitis Past Surgical History: Reports: Hx Orthopedic Surgery - left knee. Denies: Hx Open Heart Surgery, Hx Pacemaker - Immunizations Hx Diphtheria, Pertussis, Tetanus Vaccination: - unknown <VICKIE SINGH - Last Filed: 12/07/19 15:40> Review of Systems <VICKIE SINGH - Last Filed: 12/07/19 15:40> - Review of Systems Notes: REVIEW OF SYSTEMS: CONSTITUTIONAL : Denies fever, chills, or sweats. Denies recent illness. EENT: Denies eye, ear, throat, or mouth pain or symptoms. Denies nasal or sinus congestion. CARDIOVASCULAR: Denies chest pain. RESPIRATORY: Denies cough, cold, or chest congestion. Denies shortness of breath, difficulty breathing, or wheezing. GASTROINTESTINAL: Denies abdominal pain. Denies nausea, vomiting, or diarrhea. Denies constipation. GENITOURINARY: Denies difficulty urinating, painful urination, burning, frequency, or blood in urine. MUSCULOSKELETAL: Denies neck or back pain or joint pain or swelling. SKIN: Denies rash or skin lesions. HEMATOLOGIC : Denies easy bruising or bleeding. NEUROLOGICAL: Denies altered mental status or loss of consciousness. Denies headache. Denies weakness or paralysis or loss of use of either side. Denies problems with gait or speech. Denies sensory or motor loss. PSYCHIATRIC: Patient reports suicidal ideation and auditory hallucinations 10 Systems are negative unless otherwise specified above (VICKIE SINGH) Physical Exam <VICKIE SINGH - Last Filed: 12/07/19 15:40> - Vital signs Vitals: Resp Pulse Ox 15 97 12/07/19 11:44 12/07/19 11:44 - Notes Notes: PHYSICAL EXAMINATION: GENERAL: Patient is disheveled but otherwise in no acute distress. HEAD: Atraumatic, normocephalic. EYES: Pupils equal round and reactive to light, extraocular movements intact, sclera anicteric, conjunctiva are normal. ENT: nares patent, oropharynx clear without exudates. Dry mucous membranes. NECK: Normal range of motion, supple without lymphadenopathy, no appreciable JVD LUNGS: Lungs clear to auscultation bilaterally and equal. No wheezes rales or rhonchi. HEART: Regular rate and rhythm without murmurs ABDOMEN: Soft, nontender, normal bowel sounds. No guarding, no rebound. No masses appreciated. EXTREMITIES: Active full range of motion, no pitting or edema. No cyanosis. 2+ pulses x4 NEUROLOGICAL: No focal neurological deficits. Moves all extremities spontaneously and on command. Psychiatric: Patient reports to me suicidal ideation and auditory hallucinations. Patient does have a prior history of same. SKIN: Warm, Dry, and intact. Normal turgor, no rashes or lesions noted. (VICKIE SINGH) Course - Laboratory Result Diagrams: 12/07/19 11:52 12/07/19 11:52 <LESLIE KHAN - Last Filed: 12/07/19 14:18> - Laboratory Result Diagrams: 12/07/19 11:52 12/07/19 11:52 <VICKIE SINGH - Last Filed: 12/07/19 15:40> - Re-evaluation Re-evalutation: 12/07/19 15:34 Patient has been reevaluated multiple times while in emergency department. 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 I did an extensive work-up looking at the patient's laboratory results which demonstrate no significant abnormalities. I did speak with the patient's primary care physician who recommended checking with the pharmacy to ensure that the patient did have medications available at the pharmacy which we did accomplish and the patient does. The patient has been seen by mental health services denies active suicidal ideations or plans. Patient states that I misunderstood and that he was trying to say that he had had suicidal ideations in the past. When I just went in and reviewed the labs with the patient and advised him he would be discharged home the patient asked if he could change his mind. I believe some of the patient's complaint is malingering in nature. Patient is stable for discharge home at this time. (VICKIE SINGH) - Vital Signs Vital signs: Temp Pulse Resp BP Pulse Ox 97.6 F 17 101/70 97 12/07/19 12:00 12/07/19 13:01 12/07/19 13:00 12/07/19 13:01 - Laboratory Laboratory results interpreted by me: 12/07/19 12/07/19 12/07/19 11:52 11:52 14:18 RBC 3.36 L MCV 120 H MCH 42.1 H Plt Count 611 H Lymph % (Auto) 11.1 L Seg Neutrophils % 79.5 H Urine Protein 100 H Urine Ketones 80 H Salicylates < 1.0 L Acetaminophen < 10 L Discharge <LESLIE KHAN - Last Filed: 12/07/19 14:18> <VICKIE SINGH - Last Filed: 12/07/19 15:40> - Discharge Clinical Impression: Medically noncompliant, Auditory hallucinations, Chronic mental illness Condition: Stable Disposition: HOME, SELF-CARE Additional Instructions: You have been evaluated by both medical and behavioral health teams for behavioral issues and have been deemed appropriate for discharge. While in the emergency department you received the following services: Medical screening and assessment, nursing services, dietary services, pharmacological services, one-on-one counseling and/or psychotherapy, environmental services, and continuous observation by a patient food safety technician. Please go to your pharmacy and machine pecan picker your prescription medication. Please take your home medications as prescribed. Please do not stop these medications without discussing with your prescribing physician. Please follow up with your mental health provider. AT ANY TIME, IF YOUR SYMPTOMS CHANGE SIGNIFICANTLY OR WORSEN OR YOU DEVELOP NEW SYMPTOMS, RETURN TO THE EMERGENCY DEPARTMENT IMMEDIATELY FOR RE-EVALUATION. Please go to the pharmacy and machine pecan picker your prescriptions and take them as prescribed. Referrals: ALVIN ARMAS MD [Primary Care Provider] - Follow up as needed
[2019-12-07 12:30] LABS: ALBUMIN 4.3 g/dL (3.5-5.0); ALKALINE PHOSPHATASE 66 U/L (38-126); ANION GAP 11 (5-19); ASPARTATE AMINO TRANSFERASE 42 U/L (17-59); BILIRUBIN,DIRECT 0.3 mg/dL (0.0-0.4); BILIRUBIN,TOTAL 0.8 mg/dL (0.2-1.3); BLOOD UREA NITROGEN 20 mg/dL (7-20); CALCIUM 9.2 mg/dL (8.4-10.2); CARBON DIOXIDE 26 mmol/L (22-30); CHLORIDE 103 mmol/L (98-107); GLUCOSE 80 mg/dL (75-110); POTASSIUM 4.5 mmol/L (3.6-5.0); TOTAL PROTEIN 7.2 g/dL (6.3-8.2)
[2019-12-07 12:34] LABS: ACETAMINOPHEN < 10 ug/mL (10-30); ALCOHOL < 10 mg/dL (NONE DETECTED); SALICYLATE < 1.0 mg/dL (2.0-20.0)
[2019-12-07 12:40] LABS: ABSOLUTE EOSINOPHILS # (AUTO) 0.1 10^3/uL (0.0-0.6); ABSOLUTE LYMPHOCYTES (AUTO) 0.7 10^3/uL (0.5-4.7); ABSOLUTE MONOCYTES (AUTO) 0.5 10^3/uL (0.1-1.4); ABSOLUTE NEUT (AUTO) 5.2 10^3/uL (1.7-8.2); BASOPHILS % (AUTO) 0.6 % (0-2); EOSINOPHILS % (AUTO) 0.8 % (0-6); HEMATOCRIT 40.2 % (37.9-51.0); HEMOGLOBIN 14.2 g/dL (13.5-17.0); LYMPHOCYTES % (AUTO) 11.1 % (13-45); MEAN CORPUSCULAR HEMOGLOBIN 42.1 pg (27.0-33.4); MEAN CORPUSCULAR HGB CONC 35.3 g/dL (32.0-36.0); MEAN CORPUSCULAR VOLUME 120 fl (80-97); PLATELET COUNT 611 10^3/uL (150-450); RED BLOOD COUNT 3.36 10^6/uL (4.35-5.55); RED CELL DISTRIBUTION WIDTH 12.3 % (11.5-14.0); SEGMENTED NEUTROPHILS % (AUTO) 79.5 % (42-78); TOTAL CELLS COUNTED % (AUTO) 100 %; WHITE BLOOD COUNT 6.6 10^3/uL (4.0-10.5)
--- NOTE | 2019-12-07 12:54 | RADIOLOGY REPORT (SQ) ---
EXAM DESCRIPTION: CHEST SINGLE VIEW COMPLETED DATE/TIME: 12/07/2019 12:26 pm REASON FOR STUDY: sob COMPARISON: 08/24/2018. EXAM PARAMETERS: NUMBER OF VIEWS: One view. TECHNIQUE: Single frontal radiographic view of the chest acquired. RADIATION DOSE: NA LIMITATIONS: None. FINDINGS: LUNGS AND PLEURA: No opacities, masses or pneumothorax. No pleural effusion. MEDIASTINUM AND HILAR STRUCTURES: No masses. Contour normal. HEART AND VASCULAR STRUCTURES: Heart normal in size. Normal vasculature. BONES: No acute findings. HARDWARE: None in the chest. OTHER: No other significant finding. IMPRESSION: NO ACUTE RADIOGRAPHIC FINDING IN THE CHEST. TECHNICAL DOCUMENTATION: JOB ID: [id number] 2010 [employer]- All Rights Reserved Reading location - IP/workstation name: [facility]
[2019-12-07 12:56] LABS: PLATELET COMMENT INCREASED
[2019-12-07 14:37] LABS: APPEARANCE,URINE SLIGHTLY-CLOUDY; BILIRUBIN,URINE NEGATIVE (NEGATIVE); GLUCOSE, URINE NEGATIVE (NEGATIVE); KETONES,URINE 80 mg/dL (NEGATIVE); LEUKOCYTE ESTERASE,URINE NEGATIVE (NEGATIVE); NITRITE,URINE NEGATIVE (NEGATIVE); PROTEIN,URINE 100 mg/dL (NEGATIVE); UROBILINOGEN,URINE NEGATIVE mg/dL (<2.0)
[2019-12-07 14:38] LABS: COLOR,URINE YELLOW
[2019-12-07 14:53] LABS: URINE AMPHETAMINES SCREEN NEGATIVE; URINE BARBITURATES SCREEN NEGATIVE; URINE BENZODIAZEPINES SCREEN NEGATIVE; URINE COCAINE SCREEN NEGATIVE; URINE MARIJUANA (THC) SCREEN NEGATIVE; URINE METHADONE SCREEN NEGATIVE; URINE PHENCYCLIDINE SCREEN NEGATIVE
--- NOTE | 2019-12-07 15:02 | PSYCHOLOGICAL NOTE ---
Psych Note - Psych Note Date seen by psych provider: 12/07/19 Time seen by psych provider: 13:20 Psych Note: Patient is a 64-year-old male who presents to ED via EMS at the request of Ruth Ann Rivera due to patient's appearance (bloody nose and missing one shoe) and hypotens ion. Patient is known to behavioral health team. Patient was last seen by behavioral health team on 12/04/2019 with similar concerns. Patient states he was on his way to [facility] via bicycle for " antidepressants." Patient states he does not remember the cause of the bloody nose. Patient states he wanted inpatient so he could "get his meds." Patient states his phone is broken so he could not contact the pharmacy for refills. Patient reports he has been out of his medications "a couple of days." Clinician notes purple in patient's hair. When asked about the purple hair, patient's presentation changed from withdrawn to smiling, laughing, and engaged. When clinician engaged patient in more clinical conversation, patient returned to his withdrawn state. Patient reports mental health diagnosis of Paranoid Schizophrenia that was later changed to Schizoaffective Disorder. Patient reports prior thoughts of suicide, however denies current suicidal ideation. Patient states it is "against my 1st sabianist and against my second sabianist." Patient denies suicide attempts. Patient reports experiencing auditory and visual hallucinations that are sometimes disturbing. Patient would not elaborate. Patient denies command auditory hallucinations. Patient was encouraged to physically present to the pharmacy to refill his medications. Patient states he is unsure if he will return to [facility]. Patient is alert and orientated to person, place, current president, month, and year. Patient is noted to have patches of light purple to lavender hair. Mood and affect is flat. Patient reports passive suicidal ideation. Patient denies homicidal ideation. Delusions are absent and behaviors congruent with an intact reality based presentation (i.e., organized and linear thought process). Eye contact is poor, he is noted to be looking around the room and stare at the wall. Conversational speech is, at times, flat. Intellectual abilities appear to be within the average range when he chooses to engage. Attention and concentration are fair. Insight, judgment, impulse control are fair. Patient has an outpatient provider with [facility] and has current medications as follows: Vistaril 25mg three times a day Welbutrin 150mg daily Invega 6mg daily (this has just been increased from 3mg on 11/15/2019) Effexor 225mg daily Impression\\plan: Patient is cleared from acute psychiatric services. Patient was sent to ED at the request of Ruth Ann Rivera due to concerns for patient's appearance (bloody nose and missing one shoe) and hypotension. Patient demonstrated ability to answer questions he wished to answer, engage in appropriate conversation, and to be engaged, laugh, and smile with conversation that is not clinician in nature. Patient denies wanting to harm himself. 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 Patient was encouraged to physically present to pharmacy for medication refill. Dr. Garcia was consulted to care management of this patient; attending physicians in agreement with recommendations and disposition.
[2019-12-07 16:00] VITALS: BP 105/68
== END 2019-12-07 16:01 | disposition home or self-care (01) ==
LOC: ER 11:33
DX: F09 Unspecified mental disorder due to known physiological condition (principal); R44.0 Auditory hallucinations; I95.9 Hypotension, unspecified; R41.82 Altered mental status, unspecified; R45.851 Suicidal ideations; F14.90 Cocaine use, unspecified, uncomplicated; Z91.14 Patient's other noncompliance with medication regimen
CPT/HCPCS: 99285; 96360; 36415; 80307 ×4; 83690; 85025; 85610; 80053; 81001; 84484; 71045; J7030

== ENCOUNTER 2019-12-08 10:36 | Emergency (ER) | payer MEDICARE, MEDICAID ==
[2019-12-08] MEDS ORDERED: NORMAL SALINE 1000 ML 1,000 ML IV ONE (11:14)
--- NOTE | 2019-12-08 11:23 | ER Document Report ---
ED General - General Chief Complaint: Altered Mental Status Stated Complaint: ALTERED MENTAL STATUS Primary Care Provider: ALVIN ARMAS MD [Primary Care Provider] - Follow up as needed Mode of Arrival: Medic Information source: Dr. Chiki Garber, [facility] Records Cannot obtain history due to: Altered mental status Notes: Patient is a 64-year-old male coming into the emergency department by EMS chief complaint of altered mental status. I spoke with the patient's primary care provider this morning and he is requesting the patient be reevaluated and subsequently admitted for altered mental status. He believes that the patient's source is a UTI. Patient was seen and evaluated yesterday and there was no acute abnormalities identified however this morning at the doctor's office he states that the patient definitely has a change in his sensorium and he found h im to have a urinary tract infection in the office. TRAVEL OUTSIDE OF THE [place] IN LAST 30 DAYS: No - HPI Onset: Last week Onset/Duration: Gradual, Persistent Quality of pain: No pain Severity: None Pain Level: 0 Associated symptoms: Weakness Exacerbated by: Denies Relieved by: Denies Similar symptoms previously: Yes Recently seen / treated by doctor: Yes - Related Data Allergies/Adverse Reactions: No Known Allergies Allergy (Verified 12/08/19 10:53) Past Medical History - General Information source: Dr. Chiki Garber, [facility] Records - Social History Smoking Status: Never Smoker Frequency of alcohol use: None Drug Abuse: None Lives with: Alone Family History: Reviewed & Not Pertinent, Other - alzheimers Patient has suicidal ideation: No Patient has homicidal ideation: No - Past Medical History Cardiac Medical History: Reports: Hx Pulmonary Embolism Denies: Hx Heart Attack, Hx Hypertension Pulmonary Medical History: Denies: Hx Asthma Neurological Medical History: Denies: Hx Cerebrovascular Accident, Hx Seizures Renal/ Medical History: Denies: Hx Peritoneal Dialysis GI Medical History: Denies: Hx Hepatitis, Hx Hiatal Hernia, Hx Ulcer Psychiatric Medical History: Reports: Hx Bipolar Disorder, Hx Depression Infectious Medical History: Denies: Hx Hepatitis Past Surgical History: Reports: Hx Orthopedic Surgery - left knee. Denies: Hx Open Heart Surgery, Hx Pacemaker - Immunizations Hx Diphtheria, Pertussis, Tetanus Vaccination: - unknown Review of Systems - Review of Systems Notes: REVIEW OF SYSTEMS: CONSTITUTIONAL : Denies fever, chills, or sweats. Patient does complain of generalized weakness EENT: Denies eye, ear, throat, or mouth pain or symptoms. Denies nasal or sinus congestion. CARDIOVASCULAR: Denies chest pain. RESPIRATORY: Denies cough, cold, or chest congestion. Denies shortness of breath, difficulty breathing, or wheezing. GASTROINTESTINAL: Denies abdominal pain. Denies nausea, vomiting, or diarrhea. Denies constipation. GENITOURINARY: Denies difficulty urinating, painful urination, burning, frequency, or blood in urine. MUSCULOSKELETAL: Denies neck or back pain or joint pain or swelling. SKIN: Denies rash or skin lesions. HEMATOLOGIC : Denies easy bruising or bleeding. NEUROLOGICAL: Denies altered mental status or loss of consciousness. Denies headache. Denies weakness or paralysis or loss of use of either side. Denies problems with gait or speech. Denies sensory or motor loss. PSYCHIATRIC: Denies suicidal or homicidal ideations 10 Systems are negative unless otherwise specified above Physical Exam - Vital signs Vitals: Pulse Resp BP Pulse Ox 66 15 105/64 100 12/08/19 10:37 12/08/19 10:37 12/08/19 10:37 12/08/19 10:37 - Notes Notes: PHYSICAL EXAMINATION: GENERAL: Well-appearing, well-nourished and in no acute distress. HEAD: Atraumatic, normocephalic. EYES: Pupils equal round and reactive to light, extraocular movements intact, sclera anicteric, conjunctiva are normal. ENT: nares patent, oropharynx clear without exudates. Moist mucous membranes. NECK: Normal range of motion, supple without lymphadenopathy, no appreciable JVD LUNGS: Lungs clear to auscultation bilaterally and equal. No wheezes rales or rhonchi. HEART: Regular rate and rhythm without murmurs ABDOMEN: Soft, nontender, normal bowel sounds. No guarding, no rebound. No masses appreciated. EXTREMITIES: Active full range of motion, no pitting or edema. No cyanosis. 2+ pulses x4 NEUROLOGICAL: No focal neurological deficits. Moves all extremities spontaneously and on command. Patient appears at baseline similar to yesterday's visit patient shows no acute neurologic deficit. SKIN: Warm, Dry, and intact. Normal turgor, no rashes or lesions noted. Course - Re-evaluation Re-evalutation: 12/08/19 16:00 Patient has been seen and reevaluated several times while in the emergency department. Patient was seen by the hospitalist as well as mental health services. There is no acute abnormality that has been identified similar to yesterday's visit. Mental health services state that they feel the patient is at his baseline without any acute decompensation. I spoke with the patient's primary care physician Dr. Armas who requested urine be sent for culture which is already been accomplished he likewise stated that he wanted the patient put on prophylactic antibiotic for presumed urinary tract infection. I spoke with the patient and he is agreeable with care plan and discharge at this time. - Vital Signs Vital signs: Temp Pulse Resp BP Pulse Ox 98 F 66 16 105/66 99 12/08/19 11:02 12/08/19 10:37 12/08/19 15:01 12/08/19 15:01 12/08/19 15:01 - Laboratory Result Diagrams: 12/08/19 10:20 12/08/19 10:20 Laboratory results interpreted by me: 12/08/19 12/08/19 12/08/19 10:20 11:40 12:55 RBC 3.11 L Hgb 13.1 L Hct 36.9 L MCV 119 H MCH 42.1 H Plt Count 556 H VBG pH 7.27 L VBG pCO2 12.6 L* VBG HCO3 5.7 L Urine Protein 30 H Urine Ketones 80 H Urine Urobilinogen 2.0 H Discharge - Discharge Clinical Impression: AMS (altered mental status), Medically noncompliant, Chronic mental illness Condition: Stable Disposition: HOME, SELF-CARE Prescriptions: Nitrofurantoin Monohyd/M-Cryst [Macrobid 100 mg Capsule] 100 mg PO BID #20 cap Referrals: ALVIN ARMAS MD [Primary Care Provider] - Follow up as needed
[2019-12-08 11:25] LABS: INTERNATIONAL RATION (INR) 1.13; PROTHROMBIN TIME 14.6 SEC (11.4-15.4)
[2019-12-08 11:32] LABS: ABSOLUTE EOSINOPHILS # (AUTO) 0.1 10^3/uL (0.0-0.6); ABSOLUTE LYMPHOCYTES (AUTO) 0.8 10^3/uL (0.5-4.7); ABSOLUTE MONOCYTES (AUTO) 0.5 10^3/uL (0.1-1.4); ABSOLUTE NEUT (AUTO) 2.8 10^3/uL (1.7-8.2); BASOPHILS % (AUTO) 0.9 % (0-2); EOSINOPHILS % (AUTO) 1.4 % (0-6); HEMATOCRIT 36.9 % (37.9-51.0); HEMOGLOBIN 13.1 g/dL (13.5-17.0); LYMPHOCYTES % (AUTO) 18.2 % (13-45); MEAN CORPUSCULAR HEMOGLOBIN 42.1 pg (27.0-33.4); MEAN CORPUSCULAR HGB CONC 35.4 g/dL (32.0-36.0); MEAN CORPUSCULAR VOLUME 119 fl (80-97); MONOCYTES % (AUTO) 12.4 % (3-13); PLATELET COUNT 556 10^3/uL (150-450); RED BLOOD COUNT 3.11 10^6/uL (4.35-5.55); RED CELL DISTRIBUTION WIDTH 12.2 % (11.5-14.0); SEGMENTED NEUTROPHILS % (AUTO) 67.1 % (42-78); TOTAL CELLS COUNTED % (AUTO) 100 %; WHITE BLOOD COUNT 4.2 10^3/uL (4.0-10.5)
[2019-12-08 11:38] LABS: ALKALINE PHOSPHATASE 58 U/L (38-126); ANION GAP 8 (5-19); ASPARTATE AMINO TRANSFERASE 56 U/L (17-59); BILIRUBIN,TOTAL 0.8 mg/dL (0.2-1.3); BLOOD UREA NITROGEN 20 mg/dL (7-20); CALCIUM 8.9 mg/dL (8.4-10.2); CARBON DIOXIDE 26 mmol/L (22-30); CHLORIDE 105 mmol/L (98-107); GLUCOSE 106 mg/dL (75-110); TOTAL PROTEIN 6.5 g/dL (6.3-8.2)
[2019-12-08 11:48] LABS: POLYCHROMASIA SLIGHT
[2019-12-08 11:49] LABS: PLATELET COMMENT INCREASED
--- NOTE | 2019-12-08 12:02 | RADIOLOGY REPORT (SQ) ---
EXAM DESCRIPTION: CT HEAD WITHOUT COMPLETED DATE/TIME: 12/08/2019 11:53 am REASON FOR STUDY: ams s/p fall COMPARISON: None. TECHNIQUE: Axial images acquired through the brain without intravenous contrast. Images reviewed wi th bone, brain and subdural windows. Additional sagittal and coronal reconstructions were generated. Images stored on PACS. All CT scanners at this facility use dose modulation, iterative reconstruction, and/or weight based d osing when appropriate to reduce radiation dose to as low as reasonably achievable (ALARA). [facility]: Dose Right [facility]: CareDose [facility]: Dose Right [facility]: Teradose 4D [facility]: Smart mySkin RADIATION DOSE: CT Rad equipment meets quality standard of care and radiation dose reduction techniq ues were employed. CTDIvol: 53.2 mGy. DLP: 1097 mGy-cm. mGy. LIMITATIONS: None. FINDINGS: VENTRICLES: Normal size and contour. CEREBRUM: No masses. No hemorrhage. No midline shift. No evidence for acute infarction. Normal gra y/white matter differentiation. No areas of low density in the white matter. CEREBELLUM: No masses. No hemorrhage. 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 No evidence for acute in farction. EXTRAAXIAL SPACES: No fluid collections. No masses. ORBITS AND GLOBE: No intra- or extraconal masses. Normal contour of globe without masses. CALVARIUM: No fracture. PARANASAL SINUSES: No fluid or mucosal thickening. SOFT TISSUES: No mass or hematoma. OTHER: No other significant finding. 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 NO ACUTE FINDINGS. EVIDENCE OF ACUTE STROKE: NO. COMMENT: Quality ID # [id number]: Final reports with documentation of one or more dose reduction techniques (e.g., Automated exposure control, adjustment of the mA and/or kV according to patient size, use of iterative reconstruction technique) TECHNICAL DOCUMENTATION: JOB ID: [id number] 2010 [employer]- All Rights Reserved Reading location - IP/workstation name: [email or web address]
[2019-12-08 12:03] LABS: APPEARANCE,URINE SLIGHTLY-CLOUDY; BILIRUBIN,URINE NEGATIVE (NEGATIVE); GLUCOSE, URINE NEGATIVE (NEGATIVE); KETONES,URINE 80 mg/dL (NEGATIVE); LEUKOCYTE ESTERASE,URINE NEGATIVE (NEGATIVE); NITRITE,URINE NEGATIVE (NEGATIVE); PROTEIN,URINE 30 mg/dL (NEGATIVE); URINE SPECIFIC GRAVITY 1.034
[2019-12-08 12:08] LABS: COLOR,URINE DARK YELLOW
[2019-12-08 13:06] LABS: VENOUS BLOOD BASE EXCESS -19.8 mmol/L; VENOUS BLOOD HCO3 5.7 mmol/L (20-32); VENOUS BLOOD PH 7.27 (7.30-7.42)
[2019-12-08 13:07] LABS: VENOUS BLOOD PCO2 12.6 mmHg (35-63)
[2019-12-08 15:03] LABS: ARTERIAL BLOOD BASE EXCESS -2.1 mmol/L; ARTERIAL BLOOD FIO2 ROOM AIR; ARTERIAL BLOOD H2CO3 1.11 mmol/L (1.05-1.35); ARTERIAL BLOOD HCO3 22.3 mmol/L (20-24); ARTERIAL BLOOD O2 SATURATION 97.3 % (94-98); ARTERIAL BLOOD PCO2 36.8 mmHg (35-45); ARTERIAL BLOOD PO2 94.7 mmHg (80-100); ARTERIAL BLOOD TOTAL CO2 23.4 mmol/L (23-27)
--- NOTE | 2019-12-08 15:50 | PSYCHOLOGICAL NOTE ---
Psych Note - Psych Note Date seen by psych provider: 12/08/19 Time seen by psych provider: 14:00 Psych Note: Reason For Consult:AMS Patient smiled laughing engaged with clinician on 2 occasions during evaluation. Patient remembers clinician and is able to correctly identify that he is at [facility] and was sent here for a medical concern. Patient states he has been having difficulty filling his prescriptions both getting to the pharmacy and financially paying for them. He states he has been having difficulty controlling obsessive compulsive thoughts that are primarily negative in nature; this is chronic for the patient. He denies any thoughts of wanting to harm himself or others. He reports that he rents a trailer and does have difficulties with feeling lonely. Patient is alert and orientated to person, place, time and circumstance. Mood is dysphoric with flat affect. Patient denies suicidal and homicidal ideation. Delusions are absent and behaviors congruent with an intact reality based presentation ie organized and linear thought process. Eye contact is faird. Conversational speech is within normal rate, tone and prosody. Intellectual abilities appear to be within the average range. Attention and concentration are good. Insight, judgment, impulse control are fair. Impression\plan: Patient is cleared from acute psychiatric services. This patient is well known to clinician and department. Patient demonstrates cluster B personality traits and frequently struggles with negative thought processes and presents with flat affect when feeling lonely. When discussing options to increase social interaction, clinician asked patient if he has tried going to the senior center. It is unclear if the patient completely understood all the resources the senior center can provided; as it sounds as if the patient has only used housing assistance. A resource list of senior center programs was provided to patient. Patient is encouraged to engage with his outpatient mental health provider, [facility], to discuss possible ACTT or UTILIZATION REVIEWER services. 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 Dr. Garcia was consulted to care management of this patient; attending physicians in agreement with recommendations and disposition.
[2019-12-08 16:31] VITALS: BP 105/67
--- NOTE | 2019-12-08 17:29 | EKG REPORT ---
SEVERITY:- NORMAL ECG - SINUS RHYTHM : Confirmed by: Yoli Tripathi MD 08-Dec-2019 17:27:52
--- NOTE | 2019-12-08 18:22 | PDOC CONSULTATION ---
Consultation Consult Date: 12/08/19 Provider Consulted: GABBIE PENNINGTON Consult reason:: Report of personality change/odd affect History of Present Illness Admission Date/PCP: ALVIN ARMAS MD Patient complains of: fatigue History of Present Illness: KEYSHA GARCIA is a 64 year old male with a past medical history significant for pulmonary embolism, bipolar disorder, depression, alcohol dependence in remission who presented to the emergency department today from his PCP with report of altered mental status/personality change from his baseline. The patient was reportedly found wandering on the street when a person offered to take the patient to his doctor due to perceived confusion. Upon arrival to the PCP, the patient was noted to have continued delayed responses, sluggish affect, and personally change from his baseline. Per ED provider, PCP called to notify them of positive urinalysis. Of note, patient was seen the day prior by the same ED provider for complaint of fatigue and laboratory evaluation at that time was inconclusive. Patient was discharged from the ED with instructions to follow-up with PCP office today. Evaluation in the emergency department today showed normal vital signs, CBC remarkable for mild anemia (hemoglobin 13.1), normal coags, normal ABG, normal chemistry, lactic acid, troponin, and urinalysis showing ketones and a high s pecific gravity. The patient was provided an IV fluid bolus and the hospitalist service was consulted for evaluation and disposition recommendations. Mental health services were also consulted, appreciate Scott Le LCSW, assistance. Past Medical History Cardiac Medical History: Reports: Pulmonary Embolism Denies: Myocardial Infarction, Hypertension Pulmonary Medical History: Denies: Asthma EENT Medical History: Reports: None Neurological Medical History: Denies: Ischemic CVA, Seizures Endocrine Medical History: Reports: None Renal/ Medical History: Reports: None Malignancy Medical History: Reports: None GI Medical History: Denies: Hepatitis, Hiatal Hernia Musculoskeltal Medical History: Reports: None Psychiatric Medical History: Reports: Bipolar Disorder, Depression Hematology: Denies: Sickle Cell Disease Comment Only: Anemia - THROMBOCYTOPENIA Infectious Medical History: Reports: None Past Surgical History Past Surgical History: Reports: Orthopedic Surgery - left knee Denies: Pacemaker Social History Information Source: Patient Lives with: Alone Smoking Status: Never Smoker Electronic Cigarette use?: No Frequency of Alcohol Use: None Hx Recreational Drug Use: No Drugs: None Hx Prescription Drug Abuse: No - Advance Directive Resuscitation Status: Full Code Family History Family History: Reviewed & Not Pertinent, Other - alzheimers Parental Family History Reviewed: Yes Children Family History Reviewed: Yes Sibling(s) Family History Reviewed.: Yes Medication/Allergy Home Medications: Nitrofurantoin Monohyd/M-Cryst [Macrobid 100 mg Capsule] 100 mg PO BID #20 cap 12/08/19 Allergies/Adverse Reactions: No Known Allergies Allergy (Verified 12/08/19 10:53) Review of Systems Constitutional: PRESENT: fatigue. ABSENT: chills, fever(s), headache(s), weight gain, weight loss Eyes: ABSENT: visual disturbances Ears: ABSENT: hearing changes Cardiovascular: ABSENT: chest pain, dyspnea on exertion, edema, orthropnea, palpitations Respiratory: ABSENT: cough, hemoptysis Gastrointestinal: ABSENT: abdominal pain, constipation, diarrhea, hematemesis, hematochezia, nausea, vomiting Genitourinary: ABSENT: dysuria, hematuria Musculoskeletal: ABSENT: joint swelling Integumentary: ABSENT: rash, wounds Neurological: ABSENT: abnormal gait, abnormal speech, confusion, dizziness, focal weakness, syncope Psychiatric: PRESENT: depression. ABSENT: anxiety, homidical ideation, suicidal ideation Endocrine: ABSENT: cold intolerance, heat intolerance, polydipsia, polyuria Hematologic/Lymphatic: ABSENT: easy bleeding, easy bruising Physical Exam Vital Signs: Temp Pulse Resp BP Pulse Ox 97.8 F 68 16 105/67 100 12/08/19 16:31 12/08/19 16:31 12/08/19 16:31 12/08/19 16:31 12/08/19 16:31 Intake & Output 12/07/19 12/08/19 12/09/19 06:59 06:59 06:59 Intake Total 1000 Balance 1000 Weight 86.183 kg General appearance: PRESENT: no acute distress, cooperative, well-developed, well-nourished Head exam: PRESENT: atraumatic, normocephalic Eye exam: PRESENT: conjunctiva pink, EOMI, PERRLA. ABSENT: scleral icterus Ear exam: PRESENT: normal external ear exam Mouth exam: PRESENT: dry mucosa, tongue midline Respiratory exam: PRESENT: clear to auscultation hank, symmetrical, unlabored. ABSENT: rales, rhonchi, wheezes Cardiovascular exam: PRESENT: RRR, +S1, +S2. ABSENT: diastolic murmur, rubs, systolic murmur Pulses: PRESENT: normal dorsalis pedis pul Vascular exam: PRESENT: normal capillary refill GI/Abdominal exam: PRESENT: normal bowel sounds, soft. ABSENT: distended, guarding, mass, organolmegaly, rebound, tenderness Rectal exam: PRESENT: deferred Extremities exam: PRESENT: full ROM. ABSENT: calf tenderness, clubbing, pedal edema Neurological exam: PRESENT: alert, awake, oriented to person, oriented to place, oriented to time, oriented to situation, CN II-XII grossly intact. ABSENT: motor sensory deficit Psychiatric exam: PRESENT: depressed, flat affect. ABSENT: homicidal ideation, suicidal ideation Focused psych exam: PRESENT: other - psychomotor sluggishness Skin exam: PRESENT: dry, intact, warm. ABSENT: cyanosis, rash Results Laboratory Results: 12/08/19 10:20 12/08/19 10:20 12/08/19 12/08/19 12/08/19 10:20 10:20 11:40 WBC 4.2 RBC 3.11 L Hgb 13.1 L Hct 36.9 L MCV 119 H MCH 42.1 H MCHC 35.4 RDW 12.2 Plt Count 556 H Seg Neutrophils % 67.1 Carbonic Acid HCO3/H2CO3 Ratio ABG pH ABG pCO2 ABG pO2 ABG HCO3 ABG O2 Saturation ABG Base Excess VBG pH VBG pCO2 VBG HCO3 VBG Base Excess FiO2 Sodium 139.3 Potassium 4.0 Chloride 105 Carbon Dioxide 26 Anion Gap 8 BUN 20 Creatinine 0.83 Est GFR ( Amer) > 60 Glucose 106 Lactic Acid Calcium 8.9 Total Bilirubin 0.8 AST 56 Alkaline Phosphatase 58 Total Protein 6.5 Albumin 4.0 Urine Color DARK YELLOW Urine Appearance SLIGHTLY-CLOUDY Urine pH 5.0 Ur Specific [place] 1.034 Urine Protein 30 H Urine Glucose (UA) NEGATIVE Urine Ketones 80 H Urine Blood NEGATIVE Urine Nitrite NEGATIVE Ur Leukocyte Esterase NEGATIVE Urine WBC (Auto) 3 Urine RBC (Auto) 1 12/08/19 12/08/19 12/08/19 12:11 12:11 12:40 WBC RBC Hgb Hct MCV MCH MCHC RDW Plt Count Seg Neutrophils % Carbonic Acid 1.11 HCO3/H2CO3 Ratio 20:1 ABG pH 7.40 ABG pCO2 36.8 ABG pO2 94.7 ABG HCO3 22.3 ABG O2 Saturation 97.3 ABG Base Excess -2.1 VBG pH Cancelled VBG pCO2 Cancelled VBG HCO3 Cancelled VBG Base Excess Cancelled FiO2 ROOM AIR Sodium Potassium Chloride Carbon Dioxide Anion Gap BUN Creatinine Est GFR ( Amer) Glucose Lactic Acid 1.0 Calcium Total Bilirubin AST Alkaline Phosphatase Total Protein Albumin Urine Color Urine Appearance Urine pH Ur Specific [place] Urine Protein Urine Glucose (UA) Urine Ketones Urine Blood Urine Nitrite Ur Leukocyte Esterase Urine WBC (Auto) Urine RBC (Auto) 12/08/19 12/08/19 12:55 15:31 WBC RBC Hgb Hct MCV MCH MCHC RDW Plt Count Seg Neutrophils % Carbonic Acid HCO3/H2CO3 Ratio ABG pH ABG pCO2 ABG pO2 ABG HCO3 ABG O2 Saturation ABG Base Excess VBG pH 7.27 L VBG pCO2 12.6 L* VBG HCO3 5.7 L VBG Base Excess -19.8 FiO2 Sodium Potassium Chloride Carbon Dioxide Anion Gap BUN Creatinine Est GFR ( Amer) Glucose Lactic Acid 1.0 Calcium Total Bilirubin AST Alkaline Phosphatase Total Protein Albumin Urine Color Urine Appearance Urine pH Ur Specific [place] Urine Protein Urine Glucose (UA) Urine Ketones Urine Blood Urine Nitrite Ur Leukocyte Esterase Urine WBC (Auto) Urine RBC (Auto) 12/08/19 10:20 Troponin I < 0.012 Impressions: Head CT 12/08/19 11:13 IMPRESSION: 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 NO ACUTE FINDINGS. EVIDENCE OF ACUTE STROKE: NO. Assessment and Plan - Diagnosis (1) Dehydration Is this a current diagnosis for this admission?: Yes Plan: Evidenced by high specific gravity, ketones, and thrombocytosis. Patient received 1 L normal saline bolus by the ED provider. Recommend encouraging p.o. fluids. Possibly related to UTI as noted at the PCPs office, however, urinalysis done here is negative for infection. (2) AMS (altered mental status) Qualifiers: Altered mental status type: somnolence Qualified Code(s): R40.0 - Somnolence Is this a current diagnosis for this admission?: Yes Plan: Ruled out; at baseline. Patient reports fatigue. He is easily arousable. Alert and oriented x4. Slow/sluggish verbal and physical responses and movements. Laboratory evaluation and head CT are unremarkable. Given the patient's longstanding mental health history, I did ask mental health to provide an evaluation as they are very familiar with the patient and can comment to his baseline mentation. Appreciate mental health's assistance; per their assessment, patient is at his baseline mentation and presentation when having a depressive episode. He is cleared from psychiatric services. (3) Chronic mental illness Is this a current diagnosis for this admission?: Yes Plan: As above. (4) Medically noncompliant Is this a current diagnosis for this admission?: Yes Plan: Encouragement and education. Community resource information provided by [facility]. - Plan Summary Summary: The patient is cleared from the hospitalist perspective for discharge to home with outpatient follow-up with his PCP and mental health providers. At this time, he is hemodynamically stable and cleared from both medical and psychiatric perspectives. He does not meet for observation or inpatient status at this time. Do appreciate mental health services in assessing the patient's baseline mental status and personality as they are very familiar with him.
== END 2019-12-08 16:31 | disposition home or self-care (01) ==
LOC: ER 10:36
DX: R41.82 Altered mental status, unspecified (principal); F99 Mental disorder, not otherwise specified; R53.1 Weakness; Z91.14 Patient's other noncompliance with medication regimen
CPT/HCPCS: 93005; 99285; 36415; 87040; 82803 ×2; 83605; 85025; 85610; 80053; 81001; 84484; 70450; 93010; J7030; 87086

== ENCOUNTER 2019-12-13 06:22 | Emergency (ER) | payer MEDICARE, MEDICAID ==
--- NOTE | 2019-12-13 06:40 | ER Document Report ---
ED General - General Chief Complaint: Psych Problem Stated Complaint: PSYCH Time Seen by Provider: 12/13/19 06:38 Primary Care Provider: ALVIN ARMAS MD [Primary Care Provider] - Follow up as needed Mode of Arrival: Ambulatory Information source: Patient Notes: 64-year-old man presents to the emergency department with a history of schizoaffective disorder apparently off of medications for a week according to the patient. He was seen at [facility] last night, states that they would not commit him for detox. He was dismissed and apparently has been walking around since that time. He was found wandering near [facility] approximately 6 AM. He was in a T-shirt and jeans wandering the street with one flip-flop and a barefoot. Local PD contacted EMS who has brought the patient to the emergency department for further evaluation and safety. TRAVEL OUTSIDE OF THE [place] IN LAST 30 DAYS: No - Related Data Allergies/Adverse Reactions: No Known Allergies Allergy (Verified 12/08/19 10:53) Past Medical History - Social History Smoking Status: Unknown if Ever Smoked Family History: Reviewed & Not Pertinent, Other - alzheimers - Past Medical History Cardiac Medical History: Reports: Hx Pulmonary Embolism Denies: Hx Heart Attack, Hx Hypertension Pulmonary Medical History: Denies: Hx Asthma Neurological Medical History: Denies: Hx Cerebrovascular Accident, Hx Seizures Renal/ Medical History: Denies: Hx Peritoneal Dialysis GI Medical History: Denies: Hx Hepatitis, Hx Hiatal Hernia, Hx Ulcer Psychiatric Medical History: Reports: Hx Bipolar Disorder, Hx Depression Infectious Medical History: Denies: Hx Hepatitis Past Surgical History: Reports: Hx Orthopedic Surgery - left knee. Denies: Hx Open Heart Surgery, Hx Pacemaker - Immunizations Hx Diphtheria, Pertussis, Tetanus Vaccination: - unknown Review of Systems - Review of Systems Notes: Constitutional: Negative for fever. HENT: Negative for sore throat. Eyes: Negative for visual changes. Cardiovascular: Negative for chest pain. Respiratory: Negative for shortness of breath. Gastrointestinal: Negative for abdominal pain, vomiting or diarrhea. Genitourinary: Negative for dysuria. Musculoskeletal: Negative for back pain. Skin: + Abrasion to the right great toe. Neurological: Negative for headaches, weakness or numbness. Psychiatric: + Schizoaffective disorder 10 point ROS negative except as marked above and in HPI. Physical Exam - Vital signs Vitals: Pulse Ox 96 12/13/19 06:24 - Notes Notes: PHYSICAL EXAMINATION: Physical Exam: General: Well-nourished well-developed 64-year-old man in no acute distress HEENT: NC/AT, pupils equal round and reactive to light, MM moist,nares clear, oropharynx clear, airway patent Neck: supple, no adenopathy, no masses. Good range of motion Lungs: clear, no wheezing, no rales no rhonchi CVS: Regular rate and rhythm no murmur gallop or rub Abdomen: Soft, active, nontender, no masses, no hepatosplenomegaly Ext: No edema, clubbing or cyanosis. Neuro: Alert and responsive, moving all 4 extremities on command, cranial nerves intact, no focal findings Skin: Intact no open lesions, no rash PSYCH: Pleasant, cooperative, answers questions, poor judgment, states that he wanted to go to detox, "I have a friend at [facility]", denies alcohol or drug use.. Course - Re-evaluation Re-evalutation: 12/13/19 12:51 Patient states that he is ready to be discharged. He will go to his trailer when discharged from the emergency department. He denies suicidal or homicidal ideation. - Vital Signs Vital signs: Temp Pulse Resp BP Pulse Ox 98.1 F 88 16 108/58 L 100 12/13/19 13:08 12/13/19 13:08 12/13/19 13:08 12/13/19 13:08 12/13/19 13:08 - Laboratory Result Diagrams: 12/13/19 07:04 12/13/19 07:04 Laboratory results interpreted by me: 12/13/19 12/13/19 12/13/19 07:04 07:04 10:30 RBC 3.08 L Hgb 12.7 L Hct 36.2 L MCV 117 H MCH 41.3 H Plt Count 752 H Carbon Dioxide 31 H BUN 24 H Urine Protein 30 H Urine Glucose (UA) 50 H Urine Ketones 20 H Urine Urobilinogen 4.0 H The labs were reviewed and the results were reviewed and is under treatment and management of the patient. Discharge - Discharge Clinical Impression: Behavioral problem, Chronic mental illness Condition: Stable Disposition: HOME, SELF-CARE Additional Instructions: You were seen in the emergency department today and deemed able to be discharged. Please go home and follow-up with your outpatient care management provider. You may return to the emergency department if you have new problems or concerns. HOME CARE INSTRUCTIONS & INFORMATION: Thank you for choosing us for your medical needs. We hope you're satisfied with the care you received. After you leave, you must properly care for your problem and, at the same time, observe its progress. Any condition can change. Some illnesses can change rapidly over hours or days. If your condition worsens, return to the Emergency Department or see your physician promptly. ABOUT YOUR X-RAYS AND EKG'S: If you had an EKG or X-rays taken, they have been read by the Emergency Physician. The X-rays and EKG's will also be read by a Radiologist or Heavy Equipment Sales Associate within 24 hours. If discrepancies are noted, you will be notified by telephone. Please be certain the ED has a correct telephone number & address where you can be reached. Also, realize that some fractures or abnormalities do not show up on initial X-rays. If your symptoms continue, see your physician. ABOUT YOUR LABORATORY TEST: If you had laboratory tests, the results have been reviewed by the Emergency Physician. Some test results (for example cultures) may not be available for several days. You will be contacted if any test result shows you need additional treatment. Please be certain the ED has a correct telephone number and address where you can be reached. ABOUT YOUR MEDICATIONS: You will receive instructions on how to take your medicine on the prescription label you receive. Additional information may be provided by the Pharmacy. If you have questions afterwards, call the ED for clarification or further instructions. Some prescribed medications may cause drowsiness. Do not perform tasks such as driving a car or operating machinery without consulting your Pharmacist. If you feel you need a refill of pain medication, your condition will need re-evaluation. Please do not call for a refill of any medication. ABOUT YOUR SIGNATURE: Signature of this document acknowledges to followin. Understanding that you received emergency treatment and that you may be released before al medical problems are known or treated. Please be certain the ED has a correct phone number & address where you can be reached. 2. Acknowledgement that you will arrange for follow-up care as recommended. 3. Authorization for the Emergency Physician to provide information to your follow-up Physician in order to maximize your care. AT ANY TIME, IF YOUR SYMPTOMS CHANGE SIGNIFICANTLY OR WORSEN OR YOU DEVELOP NEW SYMPTOMS, RETURN TO THE EMERGENCY DEPARTMENT IMMEDIATELY FOR RE-EVALUATION. OUR GOAL IS TO PROVIDE EXCELLENT MEDICAL CARE! WE HOPE THAT WE HAVE MET YOUR EXPECTATIONS DURING YOUR EMERGENCY DEPARTMENT VISIT AND THAT YOU FEEL YOU HAVE RECEIVED EXCELLENT CARE! Referrals: ALVIN ARMAS MD [Primary Care Provider] - Follow up as needed
[2019-12-13 07:43] LABS: ALBUMIN 3.9 g/dL (3.5-5.0); ALKALINE PHOSPHATASE 70 U/L (38-126); ANION GAP 6 (5-19); ASPARTATE AMINO TRANSFERASE 39 U/L (17-59); BILIRUBIN,TOTAL 0.4 mg/dL (0.2-1.3); BLOOD UREA NITROGEN 24 mg/dL (7-20); CALCIUM 9.3 mg/dL (8.4-10.2); CARBON DIOXIDE 31 mmol/L (22-30); CHLORIDE 101 mmol/L (98-107); GLUCOSE 108 mg/dL (75-110); POTASSIUM 3.8 mmol/L (3.6-5.0); TOTAL PROTEIN 6.4 g/dL (6.3-8.2)
[2019-12-13 07:46] LABS: ALCOHOL < 10 mg/dL (NONE DETECTED)
[2019-12-13 07:52] LABS: ABSOLUTE EOSINOPHILS # (AUTO) 0.2 10^3/uL (0.0-0.6); ABSOLUTE MONOCYTES (AUTO) 0.8 10^3/uL (0.1-1.4); ABSOLUTE NEUT (AUTO) 5.8 10^3/uL (1.7-8.2); BASOPHILS % (AUTO) 0.6 % (0-2); EOSINOPHILS % (AUTO) 2.1 % (0-6); HEMATOCRIT 36.2 % (37.9-51.0); HEMOGLOBIN 12.7 g/dL (13.5-17.0); MEAN CORPUSCULAR HEMOGLOBIN 41.3 pg (27.0-33.4); MEAN CORPUSCULAR HGB CONC 35.2 g/dL (32.0-36.0); MEAN CORPUSCULAR VOLUME 117 fl (80-97); PLATELET COUNT 752 10^3/uL (150-450); RED BLOOD COUNT 3.08 10^6/uL (4.35-5.55); RED CELL DISTRIBUTION WIDTH 12.3 % (11.5-14.0); SEGMENTED NEUTROPHILS % (AUTO) 74.3 % (42-78); TOTAL CELLS COUNTED % (AUTO) 100 %; WHITE BLOOD COUNT 7.8 10^3/uL (4.0-10.5)
[2019-12-13 08:04] LABS: OVALOCYTES SLIGHT; PLATELET COMMENT INCREASED; POLYCHROMASIA SLIGHT; TEAR DROP CELLS SLIGHT
[2019-12-13 10:53] LABS: APPEARANCE,URINE SLIGHTLY-CLOUDY; BILIRUBIN,URINE NEGATIVE (NEGATIVE); COLOR,URINE AMBER; GLUCOSE, URINE 50 mg/dL (NEGATIVE); KETONES,URINE 20 mg/dL (NEGATIVE); LEUKOCYTE ESTERASE,URINE NEGATIVE (NEGATIVE); NITRITE,URINE NEGATIVE (NEGATIVE); PROTEIN,URINE 30 mg/dL (NEGATIVE); URINE SPECIFIC GRAVITY 1.032
[2019-12-13 11:42] LABS: URINE AMPHETAMINES SCREEN NEGATIVE; URINE BARBITURATES SCREEN NEGATIVE; URINE BENZODIAZEPINES SCREEN NEGATIVE; URINE COCAINE SCREEN NEGATIVE; URINE MARIJUANA (THC) SCREEN NEGATIVE; URINE METHADONE SCREEN NEGATIVE; URINE PHENCYCLIDINE SCREEN NEGATIVE
[2019-12-13 13:09] VITALS: BP 108/58
--- NOTE | 2019-12-13 13:12 | EKG REPORT ---
SEVERITY:- BORDERLINE ECG - SINUS RHYTHM PROBABLE LEFT ATRIAL ABNORMALITY : Confirmed by: Vahid Arango MD 13-Dec-2019 13:11:25
--- NOTE | 2019-12-13 14:01 | PSYCHOLOGICAL NOTE ---
Psych Note - Psych Note Date seen by psych provider: 12/13/19 Time seen by psych provider: 09:00 Psych Note: Reason for Consult: odd behaviour (found walking down the street with one foot in sock and other in a flip flop) Patient reports that he is feeling good this morning however states he was experiencing passive suicidal ideation last night. He reports that he is behind on his rent so is unsure how much longer he will have housing. When asked when the last time he had eaten he states when he was at [facility] last night. Patient disclosed that he was walking his way back to [facility] and attempt to get admitted. He states the last time he used cocaine was 8 or 9 months ago and denies currently using. There is concern that the patient has been demonstrating odd behaviors in his ability to make informed decisions and to keep himself safe. Patient was able to demonstrate orientation and correctly identified answers when asked abstract rational level thinking questions. Patient does not have any current difficulties with executive functioning or problem-solving thought processes. Patient states he does not want to live in assisted living or nursing facility. He identifies help as being able to obtain housing in the [facility]. He continues to deny current homelessness however states he is looking at impending homelessness. Patient is alert and orientated to person, place, time and circumstance. Mood is euthymic with congruent affect. Patient is noted to smile multiple times during evaluation. Patient denies suicidal and homicidal ideation. Delusions are absent and behaviors congruent with an intact reality based presentation ie organized and linear thought process. Eye contact is fair. Conversational speech is within normal rate, tone and prosody. Intellectual abilities appear to be within the average range. Attention and concentration are good. Insight, judgment, impulse control are fair. Clinician spoke with [facility]. They disclosed the patient presented last night, but did not meet criteria for admission. He disclosed the concern is the patient refuses to follow up with outpatient resources. They report the patient denied suicidal and homicidal ideation during evaluation. Clinician attempted contact with [facility]; left message Clinician received a call back from Nisreen, with [facility]. She reports patient is currently not in the system. Clinician provided referral information for [facility]. Clinician attempted contact with [facility]; left message. Impression\plan: Patient is cleared from acute psychiatric services. This patient is well known to clinician and department. Patient demonstrates cluster B personality traits and frequently struggles with negative thought processes and presents with flat affect when feeling lonely. He is currently presenting euythmic with congruent affect and denies any concerns with thoughts harming himself or others. He disclosed he was attempting to way back to [facility]; however, is unable to articulate why (since he is not experiencing any thoughts of harming himself or others). There is concern the patient continues to attempt to use the emergency department and inpatient psychiatric services for an unknown secondary gain. He refuses to follow recommendations by both [facility] and [facility] for outpatient services. He frequently reports difficulties with obtaining his medications and outpatient services. Clinician confirms the patient does not have current [facility] services so a referral was submitted. A referral for [facility] has been submitted. Dr. Garcia was consulted to care management of this patient; attending physicians in agreement with recommendations and disposition.
== END 2019-12-13 13:09 | disposition home or self-care (01) ==
LOC: ER 06:22
DX: F25.9 Schizoaffective disorder, unspecified (principal); F91.9 Conduct disorder, unspecified; Z86.711 Personal history of pulmonary embolism; Z91.14 Patient's other noncompliance with medication regimen
CPT/HCPCS: 36415; 80053; 80307; 81001; 85025; 93005; 93010; 99285